=== PATIENT | female | born 1995 | race Caucasian/White ===

== ENCOUNTER 2017-01-11 16:55 | Emergency (ER) | payer BC ==
[2017-01-11 17:01] VITALS: RESP 16
[2017-01-11] MEDS ORDERED: NS 1,000 ML IV ONE (17:41)
[2017-01-11 18:05] LABS: % IMMATURE GRANULYOCYTES 0.2 % (0.0-1.1); ABSOLUTE IMMATURE GRANULOCYTES 0.01 10^3/uL (0.00-0.10); ADD DIFF? NO; ADD MORPH? NO; ADD SCAN? NO; ATYPICAL LYMPHOCYTE FLAG 0 (0-99); FRAGMENT RBC FLAG 0 (0-99); HEMATOCRIT 40.9 % (38.0-47.0); HEMOGLOBIN 13.8 g/dL (12.6-16.3); LEFT SHIFT FLG 0 (0-99); LIPEMIA HEMOLYSIS FLAG 80 (0-99); MEAN CELL HEMOGLOBIN 32.5 pg (27.9-34.1); MEAN CELL HEMOGLOBIN CONCENTR. 33.7 g/dL (32.4-36.7); MEAN CELL VOLUME 96.5 fL (81.5-99.8); PLATELET CLUMPS FLAG 0 (0-99); PLATELET COUNT 178 10^3/uL (150-400); RED BLOOD CELL COUNT 4.24 10^6/uL (4.18-5.33); RED CELL DISTRIBUTION WIDTH 13.4 % (11.5-15.2)
--- NOTE | 2017-01-11 19:41 | EDPHY ---
H & P Stated Complaint: Constipated;last BM 6 days ago;no vom "I couldn't find an enema at [facility]" Time Seen by Provider: 01/11/17 17:32 HPI/ROS: Chief complaint: Constipation History of present illness: This is a 21-year-old female who presents to the emergency department for evaluation of constipation. She reports the onset of symptoms approximately 6 days ago. Since then she has not had a significant bowel movement. She has started to develop some abdominal discomfort starting low in the abdomen and working its way up. She describes a fullness. Occasional nausea but no vomiting. No associated fevers. No urinary symptoms. Review of systems: A 10 point review of systems was obtained and other than described above was negative - Personal History LMP (Females 10-55): 1-7 Days Ago Current Tetanus Diphtheria and Acellular Pertussis (TDAP): Yes - Medical/Surgical History Hx Asthma: No Hx Chronic Respiratory Disease: No Hx Diabetes: No Hx Cardiac Disease: No Hx Renal Disease: No Hx Cirrhosis: No Hx Alcoholism: No Hx HIV/AIDS: No Hx Splenectomy or Spleen Trauma: No Other PMH: LEFT LEG COMPART SYND/SURG, ADHD, BIPOLAR - Social History Smoking Status: Current every day smoker - Physical Exam Exam: General Appearance: Alert, nontoxic. Eyes: Pupils equal and round no pallor or injection. ENT, Mouth: Mucous membranes moist. Respiratory: There are no retractions, lungs are clear to auscultation. Cardiovascular: Regular rate and rhythm. Gastrointestinal: Bowel sounds are normal. Abdomen is soft, nondistended and nontender. Neurological: Alert and oriented x4. Strength and sensation intact and symmetrical. Skin: Warm and dry, no rashes. Musculoskeletal: Neck is supple non tender. Extremities are symmetrical, full range of motion. Psychiatric: Patient is oriented X 3, there is no agitation. Constitutional: Initial Vital Signs Temperature (C) 37.1 C 01/11/17 16:56 Heart Rate 78 01/11/17 16:56 Respiratory Rate 16 01/11/17 16:56 Blood Pressure 122/75 H 01/11/17 16:56 O2 Sat (%) 96 01/11/17 16:56 O2 Delivery Mode Room Air Allergies/Adverse Reactions: No Known Allergies Allergy (Verified 01/11/17 16:56) Home Medications: Medication Instructions Recorded Adderall 10 MG (*) 01/22/16 Ambien 01/22/16 [place] 01/22/16 [place] Carbonate 01/22/16 Loestrin 24 Fe Tablet 01/22/16 VYVANSE 01/22/16 2 Anxiety Meds ?Names 01/11/17 Medical Decision Making - Diagnostics Imaging Results: Imaging Impressions Abdomen X-Ray 01/11/17 18:47 Impression: Moderate constipation. Imaging: I viewed and interpreted images myself ED Course/Re-evaluation: Patient is discussed with my secondary supervising physician Dr. Dion Mayes. Patient presents to the emergency department concerned she is constipated with abdominal fullness. On presentation she is nontoxic. Vital signs are stable. Serial abdominal exams are performed in the emergency room and remain benign. CBC unremarkable. There is mild elevation of LFTs although she states she has had this problem past and has follow-up with her doctor next week to recheck this and her other medication levels. Urinalysis does show some blood, she recently had a menstrual cycle. Abdominal x-ray does show some constipation. She is given magnesium citrate in the emergency room and has a bowel movement and states she is feeling better. She is comfortable being discharged home. Home care is discussed including the use of stool softeners. Return precautions are given. She is again asked to follow up with her primary care doctor for recheck of her problem this evening as well as other findings here in the emergency room. Patient voiced understanding and agreement with plan. Differential Diagnosis: Included but not limited to constipation, fecal impaction, bowel obstruction, colitis, diverticulitis, urinary tract disease - Data Points Laboratory Results: Laboratory Results 01/11/17 17:58 01/11/17 17:58 01/11/17 01/11/17 01/11/17 19:37 17:58 17:58 WBC RBC Hgb Hct MCV MCH MCHC RDW Plt Count MPV Neut % (Auto) Lymph % (Auto) [place] % (Auto) Eos % (Auto) Baso % (Auto) Nucleat RBC Rel Count Absolute Neuts (auto) Absolute Lymphs (auto) Absolute Monos (auto) Absolute Eos (auto) Absolute Basos (auto) Absolute Nucleated RBC Immature Gran % Immature Gran # Sodium 148 mEq/L H mEq/L (134-144) Potassium 3.9 mEq/L mEq/L (3.5-5.2) Chloride 110 mEq/L mEq/L (97-110) Carbon Dioxide 21 mEq/l L mEq/l (22-31) Anion Gap 17 mEq/L H mEq/L (8-16) BUN 10 mg/dL mg/dL (7-23) Creatinine 0.8 mg/dL mg/dL (0.6-1.0) Estimated GFR > 60 Glucose 89 mg/dL mg/dL (70-100) Calcium 9.2 mg/dL mg/dL (8.5-10.4) Total Bilirubin 0.3 mg/dL mg/dL (0.1-1.4) Conjugated Bilirubin 0.1 mg/dL mg/dL (0.0-0.5) Unconjugated Bilirubin 0.2 mg/dL mg/dL (0.0-1.1) AST 110 IU/L H IU/L (14-46) ALT 96 IU/L H IU/L (9-52) Alkaline Phosphatase 60 IU/L IU/L (38-126) Total Protein 8.4 g/dL H g/dL (6.3-8.2) Albumin 5.0 g/dL g/dL (3.5-5.0) Lipase 140 IU/L IU/L (23-300) Beta HCG, Qual NEGATIVE Urine Color YELLOW Urine Appearance CLEAR Urine pH 7.0 (5.0-7.5) Ur Specific [place] 1.010 (1.002-1.030) Urine Protein NEGATIVE (NEGATIVE) Urine Ketones NEGATIVE (NEGATIVE) Urine Blood 1+ H (NEGATIVE) Urine Nitrate NEGATIVE (NEGATIVE) Urine Bilirubin NEGATIVE (NEGATIVE) Urine Urobilinogen NEGATIVE EU EU (0.2-1.0) Ur Leukocyte Esterase NEGATIVE (NEGATIVE) Urine RBC 3-5 /hpf H /hpf (0-3) Urine WBC 1-3 /hpf /hpf (0-3) Ur Epithelial Cells TRACE /lpf /lpf (NONE-1+) Urine Glucose NEGATIVE (NEGATIVE) 01/11/17 17:58 WBC 4.99 10^3/uL 10^3/uL (3.80-9.50) RBC 4.24 10^6/uL 10^6/uL (4.18-5.33) Hgb 13.8 g/dL g/dL (12.6-16.3) Hct 40.9 % % (38.0-47.0) MCV 96.5 fL fL (81.5-99.8) MCH 32.5 pg pg (27.9-34.1) MCHC 33.7 g/dL g/dL (32.4-36.7) RDW 13.4 % % (11.5-15.2) Plt Count 178 10^3/uL 10^3/uL (150-400) MPV 9.0 fL fL (8.7-11.7) Neut % (Auto) 49.9 % % (39.3-74.2) Lymph % (Auto) 40.1 % % (15.0-45.0) [place] % (Auto) 7.0 % % (4.5-13.0) Eos % (Auto) 2.4 % % (0.6-7.6) Baso % (Auto) 0.4 % % (0.3-1.7) Nucleat RBC Rel Count 0.0 % % (0.0-0.2) Absolute Neuts (auto) 2.49 10^3/uL 10^3/uL (1.70-6.50) Absolute Lymphs (auto) 2.00 10^3/uL 10^3/uL (1.00-3.00) Absolute Monos (auto) 0.35 10^3/uL 10^3/uL (0.30-0.80) Absolute Eos (auto) 0.12 10^3/uL 10^3/uL (0.03-0.40) Absolute Basos (auto) 0.02 10^3/uL 10^3/uL (0.02-0.10) Absolute Nucleated RBC 0.00 10^3/uL 10^3/uL (0-0.01) Immature Gran % 0.2 % % (0.0-1.1) Immature Gran # 0.01 10^3/uL 10^3/uL (0.00-0.10) Sodium Potassium Chloride Carbon Dioxide Anion Gap BUN Creatinine Estimated GFR Glucose Calcium Total Bilirubin Conjugated Bilirubin Unconjugated Bilirubin AST ALT Alkaline Phosphatase Total Protein Albumin Lipase Beta HCG, Qual Urine Color Urine Appearance Urine pH Ur Specific [place] Urine Protein Urine Ketones Urine Blood Urine Nitrate Urine Bilirubin Urine Urobilinogen Ur Leukocyte Esterase Urine RBC Urine WBC Ur Epithelial Cells Urine Glucose Medications Given: Discontinued Medications Sodium Chloride (Ns) 1,000 mls @ 0 mls/hr IV EDNOW ONE; Wide Open PRN Reason: Protocol Stop: 01/11/17 17:42 Last Admin: 01/11/17 18:03 Dose: 1,000 mls Magnesium Citrate (Magnesium Citrate) 300 ml PO ONCE ONE Stop: 01/11/17 19:44 Last Admin: 01/11/17 19:50 Dose: 300 ml Departure - Departure Disposition: Home, Routine, Self-Care Clinical Impression: Constipation Qualifiers: Constipation type: unspecified constipation type Qualified Code(s): K59.00 - Constipation, unspecified Condition: Good Instructions: Constipation (ED) Additional Instructions: Follow-up with [facility] for continued evaluation and care Please have your liver function tests recheck does a were slightly elevated Have your urine recheck as there was blood noted in it Use an [id number] stool softener such as Colace If symptoms worsen or new symptoms develop return to the emergency room for recheck Referrals: [facility] [Other] - As per Instructions
[2017-01-11] MEDS ORDERED: MAGNESIUM CITRATE 300 ML BOTTLE PO ONE (19:43)
[2017-01-11 19:49] LABS: ANION GAP 17 mEq/L (8-16); CALCIUM 9.2 mg/dL (8.5-10.4); CARBON DIOXIDE 21 mEq/l (22-31); CHLORIDE 110 mEq/L (97-110); CREATININE 0.8 mg/dL (0.6-1.0); GLOMERULAR FILTRATION RATE > 60; GLUCOSE 89 mg/dL (70-100); POTASSIUM 3.9 mEq/L (3.5-5.2); SODIUM 148 mEq/L (134-144)
[2017-01-11 19:50] LABS: ALANINE AMINOTRANSFERASE 96 IU/L (9-52); ALKALINE PHOSPHATASE 60 IU/L (38-126); ASPARTATE AMINOTRANSFERASE 110 IU/L (14-46); BILIRUBIN,TOTAL 0.3 mg/dL (0.1-1.4); BILIRUBIN-CONJUGATED 0.1 mg/dL (0.0-0.5); BILIRUBIN-UNCONJUGATED 0.2 mg/dL (0.0-1.1); TOTAL PROTEIN 8.4 g/dL (6.3-8.2)
[2017-01-11 19:50] LABS: COLOR YELLOW; LEUKOCYTE ESTERASE,URINE NEGATIVE (NEGATIVE); NITRITE,URINE NEGATIVE (NEGATIVE)
[2017-01-11 20:55] VITALS: BP 126/77; PULSE 79; TEMP 98.2; O2SAT 97
== END 2017-01-11 20:54 | disposition home or self-care (01) ==
DX: K59.00 Constipation, unspecified (principal); E86.9 Volume depletion, unspecified; F17.200 Nicotine dependence, unspecified, uncomplicated

== ENCOUNTER 2017-07-01 15:13 | Emergency (ER) | payer BC ==
--- NOTE | 2017-07-01 15:33 | EDPHY ---
H & P Stated Complaint: PT HAS BEEN OFF BIPOLAR/ANXIETY MEDS X 2 MONTHS/HAVING HALLUCINATIONS/DENIE - Personal History LMP (Females 10-55): Now Current Tetanus/Diphtheria Vaccine: Yes - Medical/Surgical History Hx Asthma: No Hx Chronic Respiratory Disease: No Hx Diabetes: No Hx Cardiac Disease: No Hx Renal Disease: No Hx Cirrhosis: No Hx Alcoholism: No Hx HIV/AIDS: No Hx Splenectomy or Spleen Trauma: No Other PMH: LEFT LEG COMPART SYND/SURG, ADHD, BIPOLAR - Social History Smoking Status: Current every day smoker <Dion Mayes - Last Filed: 07/01/17 16:40> Source: Patient, Old records Exam Limitations: No limitations <Minerva Kuhn - Last Filed: 07/02/17 02:37> Time Seen by Provider: 07/01/17 15:32 Constitutional: Initial Vital Signs Temperature (C) 36.2 C 07/01/17 15:22 Heart Rate 81 07/01/17 15:22 Respiratory Rate 18 07/01/17 15:22 Blood Pressure 124/99 H 07/01/17 15:22 O2 Sat (%) 99 07/01/17 15:22 O2 Delivery Mode Room Air Allergies/Adverse Reactions: No Known Allergies Allergy (Verified 07/01/17 23:59) Home Medications: Medication Instructions Recorded Ambien 01/22/16 Loestrin 24 Fe Tablet 01/22/16 VYVANSE 01/22/16 Amphet Asp and D/Amphet [Adderall 10 mg PO DAILY #30 tab 07/01/17 10 MG (*)] Lisdexamfetamine Dimesylate 40 mg PO DAILY #30 capsule 07/01/17 [Vyvanse] [place] Carbonate ER [Eskalith Cr 450 mg PO HS #30 tab 07/01/17 450 mg (*)] [place] Carbonate ER [Lithobid 300 300 mg PO DAILY #30 tab 07/01/17 mg (*)] Norethindrone [Sharobel] 0.35 mg PO DAILY 28 Days #1 pkt 07/01/17 Propranolol HCl [Inderal 20mg (*)] 20 mg PO DAILY #30 tab 07/01/17 hydrOXYzine HCL [hydrOXYzine HCL 25 mg PO Q8 PRN #90 tab 07/01/17 (RX)] lamoTRIgine [LamICTAL XR] 300 mg PO DAILY #30 tab.er.24 07/01/17 ED Course/Re-evaluation: CHIEF COMPLAINT: "They were concerned that I went off my medications" HISTORY OF PRESENT ILLNESS: The patient is a 22 y/o female with a history of bipolar disorder I and anxiety arriving voluntarily and complaining of insomnia , paranoia, and domingo since losing access to her mediations 2 months ago. She is a [employer] student, but is taking the semester off and lost access to her on- campus psychiatrist who prescribed all of her medications due to insurance issues. She reports she has not been sleeping for several days and feels shaky and like her "skin is crawling." She took one dose of Ambien last night and this seemed to amplify her symptoms. She is here seeking help restarting access to her medications. She denies suicidal or homicidal ideation. No recent alcohol or illicit ingestions. No recent trauma or illness. REVIEW OF SYSTEMS: A 10 point review of systems was performed and is negative with the exception of the elements mentioned in the history of present illness. PHYSICAL EXAM: HR, BP, O2 Sat, RR. Temp noted General Appearance: Alert, well hydrated, appropriate, and non-toxic appearing. Head: Atraumatic without scalp tenderness or obvious injury Eyes: Pupils equal, round, reactive to light and accommodation, EOMI, no trauma , no injection. Nose: Atraumatic, no rhinorrhea, clear. Throat: Mucus membranes moist. Neck: Supple Respiratory: No retractions, no distress, no wheezes, and no accessory muscle use. Lungs are clear to auscultation bilaterally. Cardiovascular: Regular rate and rhythm, no murmurs, rubs, or gallops. Good capillary refill all extremities. Gastrointestinal: Abdomen is soft, nontender, non-distended, no masses, no rebound, no guarding, no peritoneal signs. Musculoskeletal: Normal active ROM of all extremities, atraumatic. Neurological: Alert, appropriate, and interactive. The patient has non-focal cranial nerves, motor, sensory, and cerebellar exam. Mildly tremulous. Skin: No rashes, good turgor, no nodules on palpation. Past medical history: Left leg compartment syndrome, bipolar disorder I, ADHD, anxiety, insomnia, prior mental health hold in [place]. Vyvanse 40mg QD Adderall 10mg PRN [place] ER 750mg QD Lamictal 300mg QD Propranolol 10mg or 25mg PRN Ambien 10mg QHS to PRN Sharobel 0.35mg needs refills Hydroxyzine maybe 25mg QD to PRN Albuterol inhaler PRN Past surgical history: Noncontributory Family history: Noncontributory Social history: [employer] student but taking this semester off. No recent illicit drugs. From [place]. DIFFERENTIAL DIAGNOSIS: The differential diagnosis for the patient's symptoms included but was not limited to unmedicated bipolar disorder, anxiety, insomnia , depression, situational depression, medication side effect, drugs, and alcohol abuse. MEDICAL DECISION MAKING: This is a pleasant 22 y/o female with a history of bipolar disorder I who lost access to her medications 2 months ago and has been experiencing progressively worsening insomnia, domingo, and paranoia since then. She arrives voluntarily for help restarting her medications. She is mildly tremulous and appears anxious, but otherwise has a normal exam. She does not meet criteria for an M1 hold. Plan to treat symptoms here with 1mg PO Ativan and 10mg PO Propranolol and arrange mental health follow up. Behavioral health has met with patient and is arranging out patient follow up for her. I've written a one-month supply of her needed prescriptions. She understands follow up instructions and return precautions and is comfortable with this plan. (Dion Mayes) - Data Points Medications Given: Discontinued Medications Lorazepam (Ativan) 1 mg PO EDNOW ONE Stop: 07/01/17 15:42 Last Admin: 07/01/17 15:43 Dose: 1 mg Propranolol HCl (Inderal) 10 mg PO EDNOW ONE Stop: 07/01/17 15:42 Last Admin: 07/01/17 15:43 Dose: 10 mg Departure <Dion Mayes - Last Filed: 07/01/17 16:40> <Minerva Kuhn - Last Filed: 07/02/17 02:37> - Departure Disposition: Home, Routine, Self-Care Clinical Impression: Bipolar I disorder Condition: Good Instructions: Bipolar Disorder (ED) Additional Instructions: 1. Take all medications as prescribed. 2. Follow up with psychiatrist this week. I recommend calling first thing tomorrow morning to schedule this appointment. 3. Return to the ED for any worsening of condition. Referrals: [facility] [Clinic] - As per Instructions Prescriptions: Amphet Asp and D/Amphet [Adderall 10 MG (*)] 10 mg PO DAILY #30 tab hydrOXYzine HCL [hydrOXYzine HCL (RX)] 25 mg PO Q8 PRN #90 tab PRN Reason: Anxiety lamoTRIgine [LamICTAL XR] 300 mg PO DAILY #30 tab.er.24 Lisdexamfetamine Dimesylate [Vyvanse] 40 mg PO DAILY #30 capsule [place] Carbonate ER [Eskalith Cr 450 mg (*)] 450 mg PO HS #30 tab [place] Carbonate ER [Lithobid 300 mg (*)] 300 mg PO DAILY #30 tab Norethindrone [Sharobel] 0.35 mg PO DAILY 28 Days #1 pkt Propranolol HCl [Inderal 20mg (*)] 20 mg PO DAILY #30 tab Report Scribed for: Dion Mayes Report Scribed by: Cindi Ardon Date of Report: 07/01/17 Time of Report: 15:34 <Dion Mayes - Last Filed: 07/01/17 16:40>
[2017-07-01] MEDS ORDERED: PROPRANOLOL HCL 10 MG TAB PO ONE (15:41)
[2017-07-01] MEDS ORDERED: LORazepam 1 MG TAB PO ONE (15:41)
[2017-07-01] MEDS ORDERED: LORazepam 1 MG TAB ONE (15:42)
[2017-07-01] MEDS ORDERED: PROPRANOLOL HCL 20 MG TAB ONE (15:42)
[2017-07-01 16:55] VITALS: BP 133/100
--- NOTE | 2017-07-02 11:03 | ASDISCHSUM ---
Discharge Information Plan Status:Home with No Needs Medically Cleared to Leave: Discharge Date:07/01/2017 04:55 PM CM D/C Disposition:Home, Routine, Self-Care ADT D/C Disposition:Home, Routine, Self-Care Projected Discharge Date:07/01/2017 04:55 PM Transportation at D/C:None or Unknown Discharge Delay Reason: Follow-Up Date:07/01/2017 04:55 PM Discharge Slot: Final Diagnosis: Placement Information Patient Contact Information Contact Name:TATIANA Relationship:Father Address:[address] [place] [address] City:[facility] Phone: [facility]/Zip Code:[place] [address] Email: Financial Information Financial Class:HMO and PPO Plans Primary Plan Desc: OUT OF STATE PPO Primary Plan Number:[id number] Secondary Plan Desc: Secondary Plan Number: Assessment Information [facility] CM Progress Note CM Note CM Note Notes: LATE ENTRY: This CM briefly visited with patient in the ED on 07/01/17; discussed establishing primary care. Pt provided information on [facility] and [facility]. This CM asked to follow up with pt on 07/02/17 to see how she is doing and if she needs any assistance with appts,etc. Pt said yes that'd be fine. CM to follow up w/ pt on 07/02/17. Date Signed: 07/02/2017 11:02 AM Electronically Signed By:Ene Mitchell RN Intervention Information Intervention Type:Health Clinic Date of Service:07/02/2017 11:02 AM Patient Type:Emergency Room Staff Member:JAYE Mitchell [place] Hours:0.25 Discipline:Matcher Severity: Comment:PCP information
== END 2017-07-01 16:55 | disposition home or self-care (01) ==
DX: F31.9 Bipolar disorder, unspecified (principal); F17.200 Nicotine dependence, unspecified, uncomplicated

== ENCOUNTER 2017-07-01 23:58 | Emergency (ER) | payer BC ==
[2017-07-02] MEDS ORDERED: LORazepam 1 MG TAB ONE (01:11)
[2017-07-02] MEDS ORDERED: LORazepam 1 MG TAB PO ONE (01:12)
[2017-07-02] MEDS ORDERED: OLANZapine DISINTEGR 10 MG TAB PO ONE (02:03)
--- NOTE | 2017-07-02 02:40 | EDPHY ---
H & P Stated Complaint: anxiety-here earlier Time Seen by Provider: 07/02/17 01:51 HPI/ROS: HPI The patient presents with anxiety, restlessness, chest pains, headache, sensation that bugs are crawling on her. The patient has a history of bipolar disorder and anxiety. She was seen less than 24 hr ago in the emergency department for similar symptoms. She has been off of her psychiatric medications for 2 months due to insurance issues. She received Ativan and propanolol in the emergency department. She felt better and was discharged. Since she has been home she was able to fill all of her prescriptions which were refilled by Dr. Mayes. She took hydroxyzine twice, propanolol, lithium and Lamictal. She was not able to sleep and she found herself thrashing and screaming. She called for a friend who brought her into the emergency department. The patient says that she has not been sleeping well at all and for the last 4-5 days cannot recall much sleep. She has been given resources from the mental health team here and has plans to call a psychiatrist in the morning to arrange for further care. She is not feeling suicidal or homicidal. She has been in an inpatient psychiatric facility, though feels that she did not benefit from this. REVIEW OF SYSTEMS Constitutional: No fever, no chills. Eyes: No discharge. ENT: No sore throat. Cardiovascular: Positive for chest pain, no palpitations. Respiratory: No cough, no shortness of breath. Gastrointestinal: No abdominal pain, no vomiting. Genitourinary: No hematuria. Musculoskeletal: No back pain. Skin: No rashes. Neurological: No headache. 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 PHYSICAL General Appearance: Alert, anxious Eyes: Pupils equal and round no pallor or injection ENT, Mouth: Mucous membranes moist Respiratory: There are no retractions, lungs are clear to auscultation Cardiovascular: Regular rate and rhythm Gastrointestinal: Abdomen is soft and non-tender, no masses, bowel sounds normal Neurological: A&O, moves all extremities Skin: Warm and dry, no rashes Musculoskeletal: Neck is supple non tender Extremities: symmetrical, full range of motion Psychiatric: Patient is oriented X 3, she is slightly agitated, picking at her clothes frequently Source: Patient, Old records Exam Limitations: No limitations - Personal History LMP (Females 10-55): 1-7 Days Ago Current Tetanus Diphtheria and Acellular Pertussis (TDAP): Yes - Medical/Surgical History Hx Asthma: No Hx Chronic Respiratory Disease: No Hx Diabetes: No Hx Cardiac Disease: No Hx Renal Disease: No Hx Cirrhosis: No Hx Alcoholism: No Hx HIV/AIDS: No Hx Splenectomy or Spleen Trauma: No Other PMH: LEFT LEG COMPART SYND/SURG, ADHD, BIPOLAR - Social History Smoking Status: Current every day smoker Constitutional: Initial Vital Signs Heart Rate 72 07/02/17 00:00 Respiratory Rate 16 07/02/17 00:00 Blood Pressure 128/98 H 07/02/17 00:00 O2 Sat (%) 97 07/02/17 00:00 O2 Delivery Mode Room Air Allergies/Adverse Reactions: No Known Allergies Allergy (Verified 07/01/17 23:59) Home Medications: Medication Instructions Recorded Ambien 01/22/16 Loestrin 24 Fe Tablet 01/22/16 VYVANSE 01/22/16 Amphet Asp and D/Amphet [Adderall 10 mg PO DAILY #30 tab 07/01/17 10 MG (*)] Lisdexamfetamine Dimesylate 40 mg PO DAILY #30 capsule 07/01/17 [Vyvanse] [place] Carbonate ER [Eskalith Cr 450 mg PO HS #30 tab 07/01/17 450 mg (*)] [place] Carbonate ER [Lithobid 300 300 mg PO DAILY #30 tab 07/01/17 mg (*)] Norethindrone [Sharobel] 0.35 mg PO DAILY 28 Days #1 pkt 07/01/17 Propranolol HCl [Inderal 20mg (*)] 20 mg PO DAILY #30 tab 07/01/17 hydrOXYzine HCL [hydrOXYzine HCL 25 mg PO Q8 PRN #90 tab 07/01/17 (RX)] lamoTRIgine [LamICTAL XR] 300 mg PO DAILY #30 tab.er.24 07/01/17 Medical Decision Making Differential Diagnosis: This is a 22-year-old female with history of anxiety and bipolar disorder, currently off of her medications for the last 2 months. She presented to the emergency department earlier today for symptoms of anxiety and hallucinations. She was medicated with propanolol and Ativan and felt better. She was discharged home and was thankfully able to refill all of her prescriptions. She began taking them tonight, however her symptoms worsened and she comes back to the emergency department as instructed. She currently is feeling anxious, is experiencing some visual hallucinations of bugs crawling on her, has tightness in her chest as well as her usual migraine headache. She has been experiencing insomnia for the last several nights. She is not suicidal or homicidal and does not appear gravely disabled. Differential diagnosis includes bipolar disorder with anxiety, insomnia causing hallucinations, polysubstance abuse, medication side effect. We discussed mental health evaluation. She agrees that she does not want to be in inpatient as she has not benefit from this in the past. We have decided to try a dose of Zyprexa to see if this helps her to rest. If it does, she can be discharged home with continued re-initiation of her medication. The patient felt much better after receiving Zyprexa and would like to go home and get rest. She has good outpatient plan in place already and is not at risk. She will be discharged home. - Data Points Medications Given: Discontinued Medications Lorazepam (Ativan) 1 mg PO EDNOW ONE Stop: 07/02/17 01:13 Last Admin: 07/02/17 01:13 Dose: 1 mg Olanzapine (Zyprexa Zydis) 10 mg PO EDNOW ONE Stop: 07/02/17 02:04 Last Admin: 07/02/17 02:09 Dose: 10 mg Departure - Departure Disposition: Home, Routine, Self-Care Clinical Impression: Anxiety Condition: Good Instructions: Anxiety (ED) Additional Instructions: Please return to the emergency department if your worse in any way. Otherwise follow up with the psychiatrist as planned. Referrals: NONE *PRIMARY CARE P,. [Primary Care Provider] - As per Instructions
[2017-07-02 03:10] VITALS: BP 118/79
--- NOTE | 2017-07-02 11:00 | ASMTCMCOM ---
CM Note CM Note Notes: Followed up with pt ([phone]) this morning. Pt had to return to the ED last night due to increased anxiety and restlessness. When asked how she is doing this morning, pt stated "Not so well. I have a court date coming up and then I'll be in [facility] for 1 1/2 months before going to [facility]. So that'll be in the news and I rather not talk about it." Pt then said she needed to get off the phone and call her parents. CM available for further assistance if needed. Date Signed: 07/02/2017 10:59 AM Electronically Signed By:Ene Mitchell RN
--- NOTE | 2017-07-02 11:04 | ASDISCHSUM ---
Discharge Information Plan Status:Home with No Needs Medically Cleared to Leave: Discharge Date:07/02/2017 03:09 AM CM D/C Disposition:Home, Routine, Self-Care ADT D/C Disposition:Home, Routine, Self-Care Projected Discharge Date:07/02/2017 03:09 AM Transportation at D/C:Friend Discharge Delay Reason: Follow-Up Date:07/02/2017 03:09 AM Discharge Slot: Final Diagnosis: Placement Information Patient Contact Information Contact Name:TATIANA Relationship:Father Address:[address] [place] [address] City:[facility] Phone: [facility] Code:[place] [address] Email: Financial Information Financial Class:HMO and PPO Plans Primary Plan Desc: OUT OF STATE PPO Primary Plan Number:[id number] Secondary Plan Desc: Secondary Plan Number: Assessment Information [facility] CM Progress Note CM Note CM Note Notes: Followed up with pt ([phone]) this morning. Pt had to return to the ED last night due to increased anxiety and restlessness. When asked how she is doing this morning, pt stated "Not so well. I have a court date coming up and then I'll be in half-way for 1 1/2 months before going to retirement. So that'll be in the news and I rather not talk about it." Pt then said she needed to get off the phone and call her parents. CM available for further assistance if needed. Date Signed: 07/02/2017 10:59 AM Electronically Signed By:Ene Mitchell RN Intervention Information Intervention Type:Post Acute Communication Date of Service:07/02/2017 11:03 AM Patient Type:Emergency Room Staff Member:JAYE Mitchell Sharon Hours:0.25 Discipline:Maintenance Welder Severity: Comment:Called pt to follow-up
== END 2017-07-02 03:09 | disposition home or self-care (01) ==
DX: F41.9 Anxiety disorder, unspecified (principal); F17.200 Nicotine dependence, unspecified, uncomplicated

== ENCOUNTER 2017-07-02 14:03 | Inpatient (IN) | payer BC ==
[2017-07-02 14:32] LABS: PLATELET COUNT 243 10^3/uL (150-400)
--- NOTE | 2017-07-02 14:57 | EDPHY ---
H & P Stated Complaint: hallucinations Source: Patient Exam Limitations: No limitations - Personal History LMP (Females 10-55): 1-7 Days Ago Current Tetanus Diphtheria and Acellular Pertussis (TDAP): Yes - Medical/Surgical History Hx Asthma: No Hx Chronic Respiratory Disease: No Hx Diabetes: No Hx Cardiac Disease: No Hx Renal Disease: No Hx Cirrhosis: No Hx Alcoholism: No Hx HIV/AIDS: No Hx Splenectomy or Spleen Trauma: No Other PMH: LEFT LEG COMPART SYND/SURG, ADHD, BIPOLAR - Social History Smoking Status: Current every day smoker Time Seen by Provider: 07/02/17 14:56 HPI/ROS: CHIEF COMPLAINT: Hallucinating HISTORY OF PRESENT ILLNESS: The patient presents to the ED on M1 psychiatric hold with hallucinations. The patient has a history of bipolar mood disorder. She has been seen in the emergency department twice in the past 12 hr. She refilled chronic medications for bipolar mood disorder yesterday. She had taken some of those with an continued to be manic which resulted in her coming back to the emergency department last night. She received Zyprexa and ultimately was discharged home. She presents to the the ED today with florid psychosis with associated hallucinations. REVIEW OF SYSTEMS: A comprehensive 10 point review of systems is otherwise negative aside from elements mentioned in the history of present illness. (Russ Malcolm) - Physical Exam Exam: General Appearance: Alert, no distress Eyes: Pupils equal and round no pallor or injection ENT, Mouth: Mucous membranes moist Respiratory: There are no retractions, lungs are clear to auscultation Cardiovascular: Regular rate and rhythm Gastrointestinal: Abdomen is soft and nontender, no masses, bowel sounds normal Neurological: 5/5 strength all 4 extremities Skin: Warm and dry, no rashes Musculoskeletal: Neck is supple nontender Extremities: symmetrical, full range of motion Psychiatric: Alert and oriented x3, agitated, hallucinating, tangential thoughts, denies suicidal thoughts (Russ Malcolm) Constitutional: Initial Vital Signs Temperature (C) 36.8 C 07/02/17 14:11 Heart Rate 65 07/02/17 14:11 Respiratory Rate 18 07/02/17 14:11 Blood Pressure 140/101 H 07/02/17 14:11 O2 Sat (%) 97 07/02/17 14:11 O2 Delivery Mode Room Air Allergies/Adverse Reactions: No Known Allergies Allergy (Verified 07/01/17 23:59) Home Medications: Medication Instructions Recorded Ambien 01/22/16 Loestrin 24 Fe Tablet 01/22/16 VYVANSE 01/22/16 Amphet Asp and D/Amphet [Adderall 10 mg PO DAILY #30 tab 07/01/17 10 MG (*)] Lisdexamfetamine Dimesylate 40 mg PO DAILY #30 capsule 07/01/17 [Vyvanse] [place] Carbonate ER [Eskalith Cr 450 mg PO HS #30 tab 07/01/17 450 mg (*)] [place] Carbonate ER [Lithobid 300 300 mg PO DAILY #30 tab 07/01/17 mg (*)] Norethindrone [Sharobel] 0.35 mg PO DAILY 28 Days #1 pkt 07/01/17 Propranolol HCl [Inderal 20mg (*)] 20 mg PO DAILY #30 tab 07/01/17 hydrOXYzine HCL [hydrOXYzine HCL 25 mg PO Q8 PRN #90 tab 07/01/17 (RX)] lamoTRIgine [LamICTAL XR] 300 mg PO DAILY #30 tab.er.24 07/01/17 Medical Decision Making ED Course/Re-evaluation: The patient is on M1 psychiatric hold. The patient received 10 mg of oral Zyprexa. She has been medically cleared for psychiatric evaluation at 3:45 p.m.. The patient received 1 mg of oral Ativan for ongoing anxiety and agitation. 7:00 p.m.: The patient received a dose of IM Geodon for agitation. 9:00 p.m.. The patient continues to be agitated. She is given additional 1 mg of oral Ativan and 10 mg of IM Zyprexa. Patient re-evaluated at 10:45 p.m.. She is now sleepy and sedated. Psychiatric evaluation in process. Likely in-patient hospitalization with disposition pending. The patient will be turned over to Dr. Crane at shift change. (Russ Malcolm) 0700AM: Patient signed over to Dr. Griffith at 7am. No acute events overnight. Pending Placement. (Oliverio Crane) 700: The patient is signed out to me at change of shift by Dr. Crane. The patient is stable. 730: The place [facility] is accepted to [address] [place] [address]. I discussed this with Psychiatric Services.EMTALA completed. (Lorena Reyes) Differential Diagnosis: Differential diagnosis considered includes psychosis, metabolic abnormality, dehydration (Russ Malcolm) - Data Points Laboratory Results: Laboratory Results 07/02/17 14:25 07/02/17 14:25 Medications Given: Discontinued Medications Diphenhydramine HCl (Benadryl Injection) 50 mg IVP EDNOW ONE Stop: 07/02/17 21:15 Last Admin: 07/02/17 21:25 Dose: 50 mg Lorazepam (Ativan) 1 mg PO EDNOW ONE Stop: 07/02/17 16:37 Last Admin: 07/02/17 16:39 Dose: 1 mg Lorazepam (Ativan) 1 mg PO EDNOW ONE Stop: 07/02/17 20:16 Last Admin: 07/02/17 20:18 Dose: 1 mg Olanzapine (Zyprexa Zydis) 10 mg PO EDNOW ONE Stop: 07/02/17 15:35 Last Admin: 07/02/17 15:41 Dose: 10 mg Olanzapine (Zyprexa Im Injection) 10 mg IM EDNOW ONE Stop: 07/02/17 19:16 Last Admin: 07/02/17 20:15 Dose: Not Given Olanzapine (Zyprexa Im Injection) 10 mg IM EDNOW ONE Stop: 07/02/17 20:55 Last Admin: 07/02/17 21:16 Dose: 10 mg Ziprasidone (Geodon) 10 mg IM EDNOW ONE Stop: 07/02/17 19:19 Last Admin: 07/02/17 19:26 Dose: 10 mg Departure - Departure Disposition: [facility] IP Clinical Impression: Acute psychosis Condition: Fair Referrals: NONE *PRIMARY CARE P,. [Primary Care Provider] - As per Instructions
[2017-07-02] MEDS ORDERED: OLANZapine DISINTEGR 10 MG TAB PO ONE (15:34)
[2017-07-02] MEDS ORDERED: LORazepam 1 MG TAB ONE ×2 (16:36→20:14)
[2017-07-02] MEDS ORDERED: LORazepam 1 MG TAB PO ONE ×2 (16:36→20:15)
[2017-07-02] MEDS ORDERED: OLANZapine 10 MG/2 ML VIAL ONE (19:14)
[2017-07-02] MEDS ORDERED: OLANZapine 10 MG/2 ML VIAL IM ONE ×2 (19:15→20:54)
[2017-07-02] MEDS ORDERED: ZIPRASIDONE MESYLATE 20 MG VIAL IM ONE ×2 (19:16→19:18)
[2017-07-03] MEDS ORDERED: OLANZapine DISINTEGR 10 MG TAB PO PRN ×2 (09:28→11:16)
[2017-07-03] MEDS ORDERED: MAG HYDROX/AL HYDROX/SIMETH 30 ML UDCUP PO PRN ×2 (09:28→14:42)
[2017-07-03] MEDS ORDERED: MAGNESIUM HYDROXIDE 30 ML UDCUP PO PRN ×2 (09:28→14:42)
[2017-07-03] MEDS ORDERED: LORazepam 0.5 MG TAB PO PRN (09:28)
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
[2017-07-03] MEDS ORDERED: OLANZapine 10 MG/2 ML VIAL IM PRN (14:40)
[2017-07-03] MEDS ORDERED: PROMETHAZINE HCL 25 MG SUPPR PR PRN (14:42)
[2017-07-03] MEDS ORDERED: THIAMINE HCL 100 MG TAB PO ONE (14:42)
[2017-07-03] MEDS ORDERED: PROMETHAZINE HCL 25 MG TAB PO PRN (14:42)
[2017-07-03] MEDS ORDERED: chlordiazePOXIDE 25 MG CAP PO PRN (14:42)
[2017-07-03] MEDS ORDERED: chlordiazePOXIDE 25 MG CAP PO ONE (15:07)
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
[2017-07-03] MEDS: LITHIUM CARBONATE ER 450 MG TAB PO SCH (20:52)
[2017-07-03] MEDS: QUEtiapine FUMARATE 100 MG TAB PO SCH ×2 (20:52→22:17)
[2017-07-03] MEDS: ACETAMINOPHEN 325 MG TAB PO PRN (22:31)
[2017-07-04] MEDS ORDERED: QUEtiapine FUMARATE 100 MG TAB PO PRN (08:56)
[2017-07-04] MEDS ORDERED: FAMOTIDINE 20 MG TAB PO PRN (08:58)
--- NOTE | 2017-07-04 09:06 | SOAPPROG ---
SOAP Progress Note Assessment/Plan: Assessment: Bipolar Disorder, I, manic severe with psychotic features Alcohol Use Disorder severe Alcohol Withdrawal - resolved History of migraine headaches, LLE compartment syndrome, and possible thyroid disease Elevated liver function tests on 07/02/17 Anion gap on 07/02/17 Nicotine use disorder - on nicotine patch Takes OCP daily Patient on M-1 hold for mixed manic and psychotic symptoms, was combative and in restraints in ER. Patient received multiple doses of Ativan and antipsychotics in ER 07/02/17. Patient required two dose of Librium 25mg yesterday. Scored zero on CIWA this AM and does not currently appear to be in withdrawal. Patient was anxious with paranoia and anxiety and VH last night. Patient has been calm on unit this AM, denies hallucinations or violent thoughts , has been eating and drinking. Patient has limited insight and no current outpatient MH treatment team. Patient has odd affect and illogical when discussing discharge planning, tangential and loud and briefly irritable at times. Plan: M-1 Hold expires 07/05/17 @ 13:23 Discontinue EMEDS [place] 450mg BID. Discussed risk of hypothyroidism, renal disease, drug interactions, signs/symptoms of toxicity, and defects. Seroquel 100mg QHS. Discussed risk of tardive dyskinesia, metabolic syndrome, unclear safety in . Ativan 1mg Q4 PRN anxiety/insomnia Seroquel 100mg Q4 PRN agitation/psychosis Check AM CMP, [place] level, free T4 Monitor behavior, impulse control, thought organization, judgment on unit Discussed [facility] treatment options. Patient not motivated for residential treatment but interested in IOP Reviewed handout on Naltrexone for alcohol use disorder, discussed risk of nausea, hepatitis, and blockade of opioid pain medications. If LFTs stable will discuss starting Naltrexone tomorrow Patient will work with care professional to locate dog and arrange for outpatient MH/[facility] treatment follow up 07/04/17 09:14 Subjective: CC: "A lot better today." Patient reports sleeping well and feels that she is tolerating [place] and Seroquel. Reports reduction in racing thoughts and feels her mood is more stable. Denies violent thoughts or feeling agitated or paranoid. Denies AH or VH. Denies feeling hopeless or suicidal. Reports prior to admit having racing thoughts, going multiple days without sleep, and binge drinking alcohol. Denies nausea, sweating, tremors or severe anxiety but has a mild headache. Reports not having a current outpatient MH treatment team but wanting discharge today. Reports in the past being diagnosed with thyroid dysfunction while taking [place] but never took thyroid medication. Reports wanting to quit alcohol in order to return to school and have better relationships with family and friends but is not willing to go into residential [facility] treatment, is interested in IOP. Unable to explain her combative behavior in the ER prior to admission or inability to engage in outpatient treatment. Objective: Vital Signs Temp Pulse Resp BP Pulse Ox 36.6 C 95 16 103/68 96 07/04/17 06:00 07/04/17 06:00 07/04/17 06:00 07/03/17 22:23 07/04/17 06:00 Alert WF, ambulatory without tremors or weakness. Speech RRR, loud at times. Mood 'a lot better' Affect odd, briefly irritable. Thoughts organized but tangential at times, illogical when discussing discharge planning. Denies SI or HI or AH or VH or paranoia. No evident delusions. Memory intact to month, year, president, location. Insight limited. Patient received 2 doses of PRN Librium 25mg yesterday for alcohol withdrawal; staff report patient slept 6.5 hours. Was anxious and reported paranoia and VH last night but not this AM. 07/02/17: CBC WNL. BMP WNL except glucose 126. HgbA1c 5.3, AST 274, ALT 210, Lipids WNL. TSH 2.0. BHCG negative. - Time Spent With Patient Time Spent With Patient: 20 minutes - Pending Discharge Pending Discharge Within 24 Hours: No Pending Discharge Within 48 Hours: No ICD10 Worksheet Patient Problems: Problems Problem Status Onset Acute psychosis Acute
[2017-07-04] MEDS: NICOTINE 14 MG/24 HR PATCH TD SCH (09:40)
[2017-07-04] MEDS: THIAMINE HCL 100 MG TAB PO SCH (09:41)
[2017-07-04] MEDS: ACETAMINOPHEN 325 MG TAB PO PRN (09:41)
[2017-07-04] MEDS: MULTIVITAMINS 1 EACH TAB PO SCH (09:41)
[2017-07-04] MEDS: FOLIC ACID 1 MG TAB PO SCH (09:41)
[2017-07-04] MEDS: NORETHINDRONE E ESTRADIOL IRON PO SCH (09:47)
[2017-07-04] MEDS: LITHIUM CARBONATE ER 450 MG TAB PO SCH ×3 (11:05→20:29)
[2017-07-04] MEDS: LORazepam 1 MG TAB PO PRN (11:11)
[2017-07-04] MEDS: NICOTINE POLACRILEX 2 MG GUM B PRN (20:29)
[2017-07-04] MEDS: QUEtiapine FUMARATE 100 MG TAB PO SCH (21:39)
[2017-07-05] MEDS: THIAMINE HCL 100 MG TAB PO SCH (08:27)
[2017-07-05] MEDS: MULTIVITAMINS 1 EACH TAB PO SCH (08:27)
[2017-07-05] MEDS: FOLIC ACID 1 MG TAB PO SCH (08:27)
[2017-07-05] MEDS: LITHIUM CARBONATE ER 450 MG TAB PO SCH ×2 (08:27→21:16)
[2017-07-05] MEDS: NICOTINE 14 MG/24 HR PATCH TD SCH (08:27)
[2017-07-05] MEDS: NORETHINDRONE E ESTRADIOL IRON PO SCH (08:31)
[2017-07-05] MEDS: NICOTINE POLACRILEX 2 MG GUM B PRN ×4 (09:16→21:17)
[2017-07-05] MEDS ORDERED: NALTREXONE HCL 50 MG TAB PO ONE (10:45)
--- NOTE | 2017-07-05 10:49 | SOAPPROG ---
SOAP Progress Note Assessment/Plan: Assessment: Bipolar Disorder, I, manic severe with psychotic features - improving Alcohol Use Disorder severe Alcohol Withdrawal - resolved History of migraine headaches, LLE compartment syndrome Elevated liver function tests, probably from alcohol Nicotine use disorder - on nicotine patch Takes OCP daily Patient on M-1 hold for mixed manic and psychotic symptoms, was combative and in restraints in ER and received multiple doses of IM lorazepam and IM antipsychotics. Patient has mild alcohol withdrawal on unit after admit that resolved after 2 doses of Librium. Patient slept well but has some residual symptoms (briefly irritable and tearful , loud and tangential at times) but appears much improved. Plan: M-1 Hold expires 07/05/17 @ 13:23. Patient declines voluntary treatment. Will file short term certification in order to monitor patients mood stability and symptoms over weekend and recheck lithium level 07/08/17. Plan discharge 07/08/17 if having continued improvement. Continue [place] 450mg BID, not at steady state Continue Seroquel 100mg QHS Continue Ativan 1mg Q4 PRN anxiety/insomnia; Seroquel 100mg Q4 PRN agitation/ psychosis Reviewed lab results with patient. Discussed having PCP recheck after discharge. Monitor behavior, impulse control, thought organization, judgment on unit Start Naltrexone 25mg today, 50mg QAM starting tomorrow, for alcohol use disorder Patient agreeable to referral to a PCP and psychiatrist Patient unsure if she willing to attend outpatient [facility] IOP or MH IOP after discharge 07/05/17 10:51 Subjective: CC: "I'm fine" Patient reports sleeping well. Reports feeling that her mood is stable but is irritable and briefly tearful during interview. Denies agitation or racing thoughts or dangerous thoughts. Reports she only wants MH IOP/outpatient and doesn't want a substance abuse counselor, is not interested in residential rehab. Reports reading Naltrexone handout and agreeable to start. Reports prior to ER visits going 5-6 days without sleep with racing thoughts. Hadn't been seeing an outpatient MH provider prior to admission. Agreeable to see a PCP and psychiatrist after discharge but unsure about substance abuse treatment. Denies side effects from lithium and seroquel. Objective: Vital Signs Temp Pulse Resp BP Pulse Ox 36.6 C 82 16 103/71 97 07/05/17 06:36 07/05/17 06:36 07/05/17 06:36 07/05/17 06:36 07/05/17 06:36 Laboratory Results 07/05/17 06:00 Alert WF. Mildly restless. Speech RRR, briefly loud. Mood 'I'm fine.' Affect : briefly irritable and agitation, briefly tearful. Thoughts organized, tangential at times. Denies SI or HI or AH or VH or paranoia. Insight limited. Staff report patient slept 8.5 hours. Attending some groups and eating/ drinking. Isolative, appearing anxious at times. BMP WNL. Anion gap 10 - improved AST 120, ALT 175 - elevated but improved from ER visit Free T4 0.98 WNL Li 0.7 (on lithium 48 hours, not steady state). - Time Spent With Patient Time Spent With Patient: 30 minutes - Pending Discharge Pending Discharge Within 24 Hours: No Pending Discharge Within 48 Hours: No ICD10 Worksheet Patient Problems: Problems Problem Status Onset Acute psychosis Acute
[2017-07-05] MEDS: SUMAtriptan 25 MG TAB PO PRN ×2 (13:47→21:16)
[2017-07-05] MEDS: ACETAMINOPHEN 325 MG TAB PO PRN ×2 (14:59→22:24)
[2017-07-05] MEDS: QUEtiapine FUMARATE 100 MG TAB PO SCH (22:23)
[2017-07-05] MEDS: LORazepam 1 MG TAB PO PRN (22:24)
[2017-07-06] MEDS: LITHIUM CARBONATE ER 450 MG TAB PO SCH ×3 (08:44→20:44)
[2017-07-06] MEDS: THIAMINE HCL 100 MG TAB PO SCH (08:47)
[2017-07-06] MEDS: MULTIVITAMINS 1 EACH TAB PO SCH (08:47)
[2017-07-06] MEDS: NALTREXONE HCL 50 MG TAB PO SCH (08:48)
[2017-07-06] MEDS: FOLIC ACID 1 MG TAB PO SCH (08:49)
[2017-07-06] MEDS: NICOTINE 14 MG/24 HR PATCH TD SCH (08:49)
[2017-07-06] MEDS: SUMAtriptan 25 MG TAB PO PRN ×2 (09:01→17:41)
[2017-07-06] MEDS: NICOTINE POLACRILEX 2 MG GUM B PRN ×6 (09:02→20:11)
[2017-07-06] MEDS: NORETHINDRONE E ESTRADIOL IRON PO SCH (09:19)
[2017-07-06] MEDS: ACETAMINOPHEN 325 MG TAB PO PRN ×3 (12:27→21:56)
[2017-07-06] MEDS: LORazepam 1 MG TAB PO PRN ×3 (14:04→22:36)
--- NOTE | 2017-07-06 14:40 | SOAPPROG ---
SOAP Progress Note Assessment/Plan: Assessment: Per Dr. Torres's notes: Assessment/Plan: Assessment: Bipolar Disorder, I, manic severe with psychotic features - improving Alcohol Use Disorder severe Alcohol Withdrawal - resolved History of migraine headaches, LLE compartment syndrome Elevated liver function tests, probably from alcohol Nicotine use disorder - on nicotine patch Takes OCP daily Patient on M-1 hold for mixed manic and psychotic symptoms, was combative and in restraints in ER and received multiple doses of IM lorazepam and IM antipsychotics. Patient has mild alcohol withdrawal on unit after admit that resolved after 2 doses of Librium. Patient slept well but has some residual symptoms (briefly irritable and tearful , loud and tangential at times) but appears much improved. Plan: M-1 Hold expires 07/05/17 @ 13:23. Patient declines voluntary treatment. Will file short term certification in order to monitor patients mood stability and symptoms over weekend and recheck lithium level 07/08/17. Plan discharge 07/08/17 if having continued improvement. Continue [place] 450mg BID, not at steady state Continue Seroquel 100mg QHS Continue Ativan 1mg Q4 PRN anxiety/insomnia; Seroquel 100mg Q4 PRN agitation/ psychosis Reviewed lab results with patient. Discussed having PCP recheck after discharge. Monitor behavior, impulse control, thought organization, judgment on unit Start Naltrexone 25mg today, 50mg QAM starting tomorrow, for alcohol use disorder Patient agreeable to referral to a PCP and psychiatrist Patient unsure if she willing to attend outpatient [facility] IOP or MH IOP after discharge Plan: 07/06/17 14:36 1. Patient reports FLORES today, but denies that it's a migraine. "It's not that bad ," she says. But she took Imitrex this AM and Tylenol in PM. 2. Patient denies any SE's from Naltrexone. 3. [place] level on 07/05 was 0.7. 4. Patient will need referral to psych MD and therapist prior to d/c. 5. MD told patient he agreed with Dr. Torres's recommendation for substance disorder treatment after d/c, either residential, IOP or CAC therapy. Subjective: Met with patient, reviewed chart and d/w staff. Patient says she is doing "well " and has no problems to complaints today. She denies any SE's from naltrexone or lithium. She had FLORES this AM, but claims it "wasn't a migraine." She denies any SI/HI, no AH/VH. Objective: Vital Signs Temp Pulse Resp BP Pulse Ox 36.4 C 70 16 96/57 L 98 07/06/17 06:32 07/06/17 06:32 07/06/17 06:32 07/06/17 06:32 07/06/17 06:32 Laboratory Results 07/05/17 06:00 MSE: Affect: Euthymic Mood: "OK" TP: Linear TC: Denies any SI/HI, no evidence of psychosis Insight/Judgment: Poor - Time Spent With Patient Time Spent With Patient: 15" - Pending Discharge Pending Discharge Within 24 Hours: Yes Pending Discharge Date: 07/07/17 (Possible d/c on Saturday after f/u appts finalized) Pending Discharge Time: 11:00 ICD10 Worksheet Patient Problems: Problems Problem Status Onset Acute psychosis Acute
[2017-07-06] MEDS: QUEtiapine FUMARATE 100 MG TAB PO SCH (22:36)
[2017-07-07] MEDS: LITHIUM CARBONATE ER 450 MG TAB PO SCH ×2 (08:43→20:54)
[2017-07-07] MEDS: FOLIC ACID 1 MG TAB PO SCH (08:43)
[2017-07-07] MEDS: MULTIVITAMINS 1 EACH TAB PO SCH (08:43)
[2017-07-07] MEDS: NICOTINE 14 MG/24 HR PATCH TD SCH (08:44)
[2017-07-07] MEDS: NALTREXONE HCL 50 MG TAB PO SCH (08:44)
[2017-07-07] MEDS: NICOTINE POLACRILEX 2 MG GUM B PRN ×5 (08:53→18:48)
[2017-07-07] MEDS: SUMAtriptan 25 MG TAB PO PRN (09:08)
[2017-07-07] MEDS: NORETHINDRONE E ESTRADIOL IRON PO SCH ×2 (10:34→20:54)
--- NOTE | 2017-07-07 13:07 | SOAPPROG ---
SOAP Progress Note Assessment/Plan: Assessment: Per Dr. Torres's notes: Assessment/Plan: Assessment: Bipolar Disorder, I, manic severe with psychotic features - improving Alcohol Use Disorder severe Alcohol Withdrawal - resolved History of migraine headaches, LLE compartment syndrome Elevated liver function tests, probably from alcohol Nicotine use disorder - on nicotine patch Takes OCP daily Patient on M-1 hold for mixed manic and psychotic symptoms, was combative and in restraints in ER and received multiple doses of IM lorazepam and IM antipsychotics. Patient has mild alcohol withdrawal on unit after admit that resolved after 2 doses of Librium. Patient slept well but has some residual symptoms (briefly irritable and tearful , loud and tangential at times) but appears much improved. Plan: M-1 Hold expires 07/05/17 @ 13:23. Patient declines voluntary treatment. Will file short term certification in order to monitor patients mood stability and symptoms over weekend and recheck lithium level 07/08/17. Plan discharge 07/08/17 if having continued improvement. Continue [place] 450mg BID, not at steady state Continue Seroquel 100mg QHS Continue Ativan 1mg Q4 PRN anxiety/insomnia; Seroquel 100mg Q4 PRN agitation/ psychosis Reviewed lab results with patient. Discussed having PCP recheck after discharge. Monitor behavior, impulse control, thought organization, judgment on unit Start Naltrexone 25mg today, 50mg QAM starting tomorrow, for alcohol use disorder Patient agreeable to referral to a PCP and psychiatrist Patient unsure if she willing to attend outpatient [facility] IOP or IOP after discharge Plan: 07/06/17 14:36 1. Patient reports FLORES today, but denies that it's a migraine. "It's not that bad ," she says. But she took Imitrex this AM and Tylenol in PM. 2. Patient denies any SE's from Naltrexone. 3. [place] level on 07/05 was 0.7. 4. Patient will need referral to psych MD and therapist prior to d/c. 5. MD told patient he agreed with Dr. Torres's recommendation for substance disorder treatment after d/c, either residential, IOP or CAC therapy. 07/07/17 13:04 1. Taking Imitrex preventively, b/c admits her FLORES's are "not migraines...they' re not that bad." 2. MD explained naltrexone helps reduce cravings for alcohol. Patient read it is an opioid antagonist and was worried "you thought I had an opioid addiction. " 3. [place] level on Saturday. 4. Needs f/u appts prior to d/c. Subjective: Met with patient, reviewed chart and d/w staff. Patient told RN this AM, she felt "thickening" in her head which was "not a migraine" but patient wanted to take Imitrex to prevent migraine. Patient is eager to be discharged, b/c she feels she is wasting her time in hospital. She denies any SI/HI, no evidence of psychosis. Patient was confused about the benefits of naltrexone. She was worried her treatment team thought she had opioid addiction. MD explained that naltrexone helps to reduce alcohol cravings. Objective: Vital Signs Temp Pulse Resp BP Pulse Ox 36.4 C 69 15 108/67 94 07/07/17 06:43 07/07/17 06:43 07/07/17 06:43 07/07/17 06:43 07/07/17 06:43 Laboratory Results 07/05/17 06:00 MSE: Affect: Pleasant Mood: "OK" TP: Linear TC: Denies any SI/HI, no AH/VH Insight/Judgment: Poor a/e/b refusal to seek tx for alcohol dependence - Time Spent With Patient Time Spent With Patient: 15" - Pending Discharge Pending Discharge Within 24 Hours: Yes Pending Discharge Date: 07/08/17 (Possible d/c on Saturday once f/u plan is finalized) Pending Discharge Time: 11:00 ICD10 Worksheet Patient Problems: Problems Problem Status Onset Acute psychosis Acute
[2017-07-07] MEDS: LORazepam 1 MG TAB PO PRN ×2 (14:31→22:25)
[2017-07-07] MEDS: ACETAMINOPHEN 325 MG TAB PO PRN (18:48)
[2017-07-07] MEDS ORDERED: NORETHINDRONE E ESTRADIOL IRON PO SCH (21:00)
[2017-07-07] MEDS: QUEtiapine FUMARATE 100 MG TAB PO SCH (22:25)
[2017-07-08 06:31] VITALS: BP 108/65
[2017-07-08] MEDS: NALTREXONE HCL 50 MG TAB PO SCH (07:53)
[2017-07-08] MEDS: LITHIUM CARBONATE ER 450 MG TAB PO SCH (07:53)
[2017-07-08] MEDS: MULTIVITAMINS 1 EACH TAB PO SCH (07:53)
[2017-07-08] MEDS: NICOTINE 14 MG/24 HR PATCH TD SCH (07:53)
[2017-07-08] MEDS: SUMAtriptan 25 MG TAB PO PRN (07:56)
[2017-07-08] MEDS: FOLIC ACID 1 MG TAB PO SCH (08:12)
[2017-07-08] MEDS: NICOTINE POLACRILEX 2 MG GUM B PRN ×2 (08:38→09:38)
[2017-07-08] MEDS: LORazepam 1 MG TAB PO PRN (09:37)
--- NOTE | 2017-07-08 13:29 | BDS ---
[f rep st] BEHAVIORAL HEALTH DISCHARGE SUMMARY IDENTIFICATION: This is a 22-year-old, single white female, who lives with a roommate and a Serbian Chavez mix named Dutch. She is not currently employed. She has completed 3-1/2 years at the [employer], but is not currently in school. Her father Cristino Carrington, phone number [phone], lives in [place], and is her primary financial support. REASON FOR ADMISSION: Please see initial psychiatric evaluation from July 03, 2017. The patient had 3 emergency room visits in a 48-hour period, during which she had multiple complaints including anxiety, insomnia, symptoms of bipolar disorder. During the 3rd visit, she was agitated, having visual hallucinations, was combative and in restraints. She apparently called the police to her home due to having visual hallucinations and paranoia. In the emergency room, she had multiple doses of PO and IM antipsychotics and lorazepam , due to severe agitation. The patient was admitted on an M1 hold for grave disability. HOSPITAL COURSE: The patient was placed on assault awareness and safety precautions. The patient appeared to be in alcohol withdrawal upon admission and got 2 doses of Librium 25 mg for alcohol withdrawal and was on the CIWA protocol for 36 hours. The patient had not been receiving outpatient mental health treatment prior to admission. She had been getting medications for ADHD , including Vyvanse and Adderall from Dr. Aguilar, at the [facility], up until the fall. She had recently had emergency room visit trying to get back on her psychiatric medications that included lithium, Adderall, and Vyvanse. The patient, upon admission to the inpatient unit, was much more calm than the report from the emergency department. She did appear to have alcohol withdrawal symptoms. She had limited insight into the need to be taking mood stabilizer medications, but was agreeable to restart lithium, that she had taken in the past. She was also given Seroquel at bedtime, to help with sleep and for mood stabilization. The patient was counseled about the risks of lithium causing hypothyroidism, renal disease, as well as interaction with nonsteroidal anti-inflammatory drugs, and diuretic blood pressure medicines, as well as the risks of defects and miscarriage. The patient was continued on her oral contraceptive pill. She was given p.r.n. Imitrex for her migraine headaches. She was given a nicotine patch for nicotine use disorder. The patient tolerated lithium and Seroquel. Follow-up lithium level on 450 mg p.o. b.i.d. was 0.6. The patient was sleeping consistently with a combination of lithium and Seroquel. She was counseled about the risks of Seroquel causing diabetes, hyperlipidemia, and tardive dyskinesia. The patient had elevated liver function tests, likely due to alcoholism. The patient reported drinking 3 -6 drinks nightly or several nights a week. Of note, the patient had an emergency room visit over a year ago when she had a blood alcohol level over 300. The patient did not have alcohol in her blood during the index emergency room visit that led to the current hospitalization. The patient was counseled about her elevated liver function tests likely being secondary to alcohol, but counseled that she would need to see a primary care doctor in a month to have them rechecked to look for alternative medical causes for elevated liver functions such as viral hepatitis or other hepatocellular disease. The patient, on the unit, was largely calm, cooperative, pleasant, eating well, sleeping well, able to attend groups. She initially was somewhat dysphoric, labile, and irritable. She also was a little bit illogical regarding discharge planning. She did not report motivation to go into residential substance abuse treatment or even outpatient substance abuse treatment. She was willing to be referred back to receive outpatient psychiatric treatment including an intensive outpatient program and seeing a psychiatrist. Although the patient did not want outpatient substance use counseling, she was agreeable to start naltrexone for alcohol cravings. She received 25 mg and then 50 mg of this medication. She was given a handout on naltrexone, listing the side effects including hepatitis and blockade of opiate pain medications. The patient initially had an anion gap likely due to alcoholism. This improved on a followup blood test. The patient's father was notified of the patient's admission and the patient's discharge planning. Prior to discharge, the patient had a marked improvement. She was calm, pleasant, and cooperative, agreeable to followup treatment for her mental health but not outpatient substance abuse treatment. CONDITION ON DISCHARGE: She is an alert white female in no acute distress. She is pleasant and cooperative, ambulatory without weakness or tremors. Her speech is regular rate and rate and rhythm. Her thoughts are organized. She denies any thoughts to hurt herself or others. She denies paranoia or hallucinations. She has limited insight but appropriate judgment regarding need to get mental health treatment. She has limited motivation for sobriety. LABS: She had a white blood cell count 9.4, hemoglobin 14.6, platelet count 243. On July 05, she had a sodium 143, potassium 4.0, creatinine 0.8, glucose 73, calcium 9.4, total bilirubin 0.6, AST 120, ALT 175, albumin 3.9, alkaline phosphatase 46, triglycerides 65, LDL 82, HDL of 154. TSH 2.0, free T4 was 0.9. Serum beta HCG was negative. Urine drug screen on July 02 was positive for benzodiazepines, but she had gotten Valium or Ativan in the emergency room. She initially had a lithium level of 0.4. This increased to 0.6 prior to discharge. CONSULTS: The patient was seen by Dr. Javier, the hospitalist, on July 03, 2017. PROCEDURES: None. ADVANCED DIRECTIVES: The patient declined to have an advanced directive. METABOLIC SCREENING: Patient was counseled about Seroquel causing increased risk of diabetes and hyperlipidemia and was counseled to eat a low-sugar, low- fat diet. Her lipid panel was normal and her glucose was normal. NICOTINE USE DISORDER SCREENING: The patient was counseled about the risks of smoking and encouraged to use nicotine replacement products and used a nicotine patch while in the hospital. ALCOHOL USE DISORDER SCREEN: The patient has a severe alcohol use disorder. She declined referrals to residential substance abuse treatment. She agreed to start naltrexone for alcohol cravings. DISCHARGE DIAGNOSES: 1. Bipolar disorder type 1, most recent episode manic, severe, with psychotic features. 2. Alcohol use disorder, severe. 3. Alcohol withdrawal. 4. History of migraine headaches. 5. History of left lower extremity compartment syndrome surgery. 6. Elevated liver function tests, possibly related to alcohol. 7. Nicotine use disorder. 8. History of attention deficit hyperactivity disorder DISCHARGE MEDICATIONS: [place] extended-release 450 mg by mouth twice a day, naltrexone 50 mg by mouth daily, Seroquel 100 mg p.o. q.h.s. The patient is also to continue her oral contraceptive pill 1 tablet daily that she was taking prior to admission. She is also prescribed Imitrex 25 mg b.i.d. p.r.n. for migraine headache, maximum 10 tablets in a month. The prescriptions were written for a 30-day supply bubble pack. DISPOSITION: The patient has a positive attitude toward discharge and will be given a taxi voucher to return home. OTHER INSTRUCTIONS: The patient was counseled to not take other medications that she had mentioned in the emergency room as taking in the recent past, including zolpidem, amphetamine, Adderall, hydroxyzine, lamotrigine, Vyvanse, propranolol. The patient was counseled to stop drinking alcohol. The patient was instructed to have a primary care doctor recheck her liver function tests in 1-month. The patient was given a copy of her blood test results to take to her psychiatrist appointment and to have her psychiatrist recheck her glucose and lipid panels in 1 month while taking Seroquel. REFERRALS: The patient was referred to [facility] for primary care. She was also referred to Dr. Aponte, psychiatrist, for outpatient mental health treatment. She was also [facility] to [facility] program on the 2nd floor, [address] [place] [address], here in [place]. LEGAL STATUS: The patient was admitted on an M1 hold and then placed on short- term certification. This will be terminated upon discharge. /[id number]/MODL [id number]
== END 2017-07-08 12:40 | disposition home or self-care (01) | DRG 885 ==
LOC: EDUNIT# → BBEH 07-03 08:47
DX: F31.2 Bipolar disorder, current episode manic severe with psychotic features (principal); F10.239 Alcohol dependence with withdrawal, unspecified; R94.5 Abnormal results of liver function studies; F17.200 Nicotine dependence, unspecified, uncomplicated; G43.909 Migraine, unspecified, not intractable, without status migrainosus; R00.0 Tachycardia, unspecified; R44.1 Visual hallucinations; F90.9 Attention-deficit hyperactivity disorder, unspecified type; Y90.0 Blood alcohol level of less than 20 mg/100 ml; Z81.8 Family history of other mental and behavioral disorders; Z91.14 Patient's other noncompliance with medication regimen; Z59.7 Insufficient social insurance and welfare support
CPT/HCPCS: 80305; 96374; G0480; J1200; J3486

== ENCOUNTER 2018-01-15 05:33 | Emergency (ER) | payer BC ==
[2018-01-15 05:39] VITALS: BP 130/100
[2018-01-15] MEDS ORDERED: ACETAMINOPHEN 500 MG TAB PO ONE (06:00)
--- NOTE | 2018-01-15 06:00 | EDPHY ---
H & P Stated Complaint: Increasing swelling in tonsils, trouble swallowing,tonsilecty in 2wks Time Seen by Provider: 01/15/18 05:49 HPI/ROS: HPI The patient presents with tonsillar pain and swelling which has been present intermittently for the last several weeks though has become worse over the last 2 days. The patient tells me that she removed about 15 tonsil stones a few days ago and after this she is had difficulty sleeping because she feels that her throat is closing on her. She has not had a fever, neck pain, sore throat. She said she has made an appointment with an Ear Nose and Throat doctor for 2 weeks from now. She has had tonsillitis a few times before. She does not have a history of strep throat.. REVIEW OF SYSTEMS 10 systems were reviewed and negative with the exception of the elements mentioned in the history of present illness. PMHx: Attention deficit hyperactivity disorder, bipolar disorder Soc Hx: Housed with roommates PHYSICAL General Appearance: Alert, no distress Eyes: Pupils equal and round no pallor or injection ENT, Mouth: Mucous membranes moist, posterior pharynx is erythematous without edema, there are no exudates, tonsils do not appear enlarged Respiratory: There are no retractions, lungs are clear to auscultation Cardiovascular: Regular rate and rhythm Gastrointestinal: Abdomen is soft and non-tender, no masses, bowel sounds normal Neurological: A&O, moves all extremities Skin: Warm and dry, no rashes Musculoskeletal: Neck is supple non tender Extremities: symmetrical, full range of motion Psychiatric: Patient is oriented X 3, there is no agitation Source: Patient Exam Limitations: No limitations - Personal History LMP (Females 10-55): IUD In Place Current Tetanus Diphtheria and Acellular Pertussis (TDAP): Yes - Medical/Surgical History Hx Asthma: No Hx Chronic Respiratory Disease: No Hx Diabetes: No Hx Cardiac Disease: No Hx Renal Disease: No Hx Cirrhosis: No Hx Alcoholism: No Hx HIV/AIDS: No Hx Splenectomy or Spleen Trauma: No Other PMH: LEFT LEG COMPART SYND/SURG, ADHD, BIPOLAR - Social History Smoking Status: Light smoker Constitutional: Initial Vital Signs Temperature (C) 36.7 C 01/15/18 05:38 Heart Rate 78 01/15/18 05:38 Respiratory Rate 18 01/15/18 05:38 Blood Pressure 130/100 H 01/15/18 05:38 O2 Sat (%) 98 01/15/18 05:38 O2 Delivery Mode Room Air Allergies/Adverse Reactions: No Known Allergies Allergy (Verified 01/15/18 21:18) Home Medications: Medication Instructions Recorded Norethindrone-E.estradiol-Iron [Lo 1 each PO DAILY 01/22/16 Loestrin Fe 1-10 Tablet] [place] Carbonate ER [Eskalith Cr 450 mg PO BID 30 Days tab 07/08/17 450 mg (*)] Naltrexone HCl [Revia] 50 mg PO DAILY 30 Days tab 07/08/17 Norethindrone-E.Estradiol-Iron [Lo 1 each PO HS 07/08/17 Loestrin Fe 1-10 Tablet] QUEtiapine FUMARATE [Seroquel 100 100 mg PO HS 30 Days tab 07/08/17 mg (*)] SUMAtriptan [Imitrex 25 MG (*)] 25 mg PO BID PRN #10 tab 07/08/17 Propranolol Sr 01/15/18 Medical Decision Making Differential Diagnosis: 22-year-old female with history of anxiety and attention deficit hyperactivity disorder presents with difficulty swallowing tonight, concerned that her tonsils are enlarged and prevented her from sleeping after removing tonsil stones. On exam here, her posterior pharynx is slightly erythematous though without edema or tonsillar hypertrophy. She may be feeling some discomfort after removing these tonsil stones. I do not see any signs of airway issues with her. I question if some of her symptoms are related to anxiety. I have encouraged her to use ibuprofen and Tylenol as needed for pharyngeal inflammation. I do not think she is a good candidate for steroids given her mental health issues. She will be discharged from the emergency department and already has follow-up with ENT. - Data Points Medications Given: Discontinued Medications Acetaminophen (Tylenol) 1,000 mg PO EDNOW ONE Stop: 01/15/18 06:01 Last Admin: 01/15/18 06:06 Dose: 1,000 mg Departure - Departure Disposition: Home, Routine, Self-Care Clinical Impression: Tonsillar erythema Condition: Good Instructions: Tonsillitis (ED) Additional Instructions: I recommend you take ibuprofen 400 mg and acetaminophen 650 mg together every 6 hr as needed for pain. You may benefit from sleeping with a humidifier in her room at night. Referrals: Luis Whelan MD [Medical Doctor] - As per Instructions
== END 2018-01-15 06:07 | disposition home or self-care (01) ==
DX: J35.8 Other chronic diseases of tonsils and adenoids (principal)

== ENCOUNTER 2018-01-15 21:11 | Emergency (ER) | payer BC ==
[2018-01-15] MEDS ORDERED: LORazepam 2 MG/ML INJ IVP ONE ×2 (21:17→22:14)
--- NOTE | 2018-01-15 21:25 | EDPHY ---
H & P Stated Complaint: Anxiety attack, shaking Time Seen by Provider: 01/15/18 21:11 HPI/ROS: CHIEF COMPLAINT: "I am having anxiety attack" HISTORY OF PRESENT ILLNESS: 22-year-old female history of bipolar mood disorder arrives via ambulance complaining of acute anxiety without suicidal or homicidal ideation, without hallucination. This was triggered by watching something scary on TV this evening. She has not slept in 2 nights. She ran out of her Xanax few days ago. She would like to be evaluated by mental health services concerned that she may be an acute manic period. Denies complaints of physical pain. She was seen the ER earlier today for tonsillitis concerns. States that this is stable and is unchanged. Denies change in voice. Denies fever chills. Denies nuchal rigidity. REVIEW OF SYSTEMS: 10 systems reviewed and negative with the exception of the elements mentioned in the history of present illness PAST MEDICAL & SURGICAL HISTORY: Bipolar mood disorder. Prior history of alcohol abuse. SOCIAL HISTORY: Denies acute alcohol or drug use PHYSICAL EXAM (Prior to examination, patient consented to physical exam, hands were washed and my usual and customary physical exam procedures followed) 1) GENERAL: Well-developed, well-nourished, alert and oriented. Appears anxious. She is tremulous. She is tearful.. 2) HEAD: Normocephalic, atraumatic 3) HEENT: Pupils equal, round, reactive to light bilaterally. Sclera anicteric. 4) NECK: Full range of motion, no meningeal signs. 5) LUNGS: Clear auscultation bilaterally, no wheezes, no rhonchi, no retractions. 6) HEART: Regular rate and rhythm, no murmur, no heave, no gallop. 7) ABDOMEN: No guarding, no rebound, no focal tenderness, 8) MUSCULOSKELETAL: No peripheral edema or discoloration. 9) BACK: No obvious trauma, no visual or palpable abnormality. 10) SKIN: No rash, no petechiae. 11) Psychiatric: Patient is oriented X 3, tremulous, tearful. DIFFERENTIAL DIAGNOSIS: In no particular order including but not limited to acute anxiety reaction, benzodiazepine withdrawal, suicidal ideation, homicidal ideation - Personal History LMP (Females 10-55): 8-14 Days Ago Current Tetanus Diphtheria and Acellular Pertussis (TDAP): Yes - Medical/Surgical History Hx Asthma: No Hx Chronic Respiratory Disease: No Hx Diabetes: No Hx Cardiac Disease: No Hx Renal Disease: No Hx Cirrhosis: No Hx Alcoholism: No Hx HIV/AIDS: No Hx Splenectomy or Spleen Trauma: No Other PMH: LEFT LEG COMPART SYND/SURG, ADHD, BIPOLAR, anxiety - Social History Smoking Status: Light smoker Constitutional: Initial Vital Signs Temperature (C) 37.3 C 01/15/18 21:15 Heart Rate 126 H 01/15/18 21:15 Respiratory Rate 18 01/15/18 21:15 Blood Pressure 154/100 H 01/15/18 21:15 O2 Sat (%) 96 01/15/18 21:15 O2 Delivery Mode Room Air Allergies/Adverse Reactions: No Known Allergies Allergy (Verified 01/15/18 21:18) Home Medications: Medication Instructions Recorded Norethindrone-E.estradiol-Iron [Lo 1 each PO DAILY 01/22/16 Loestrin Fe 1-10 Tablet] [place] Carbonate ER [Eskalith Cr 450 mg PO BID 30 Days tab 07/08/17 450 mg (*)] Naltrexone HCl [Revia] 50 mg PO DAILY 30 Days tab 07/08/17 Norethindrone-E.Estradiol-Iron [Lo 1 each PO HS 07/08/17 Loestrin Fe 1-10 Tablet] QUEtiapine FUMARATE [Seroquel 100 100 mg PO HS 30 Days tab 07/08/17 mg (*)] SUMAtriptan [Imitrex 25 MG (*)] 25 mg PO BID PRN #10 tab 07/08/17 Propranolol Sr 01/15/18 Medical Decision Making ED Course/Re-evaluation: 9:24 p.m.: Patient is in the ER voluntarily. I reviewed her old medical records. Will administer IV benzodiazepine. Do not think she meets criteria for an M1 hold or mental incapacity hold at this time. Care of patient under supervision of secondary supervising physician Dr Crane 10:14 p.m.: Re-evaluation after 1 mg of Ativan. She remains tremulous. Discussed possibility of acute alcohol withdrawal. She initially requested mental health evaluation however at this time she states that she believes that she received 1 more dose of Ativan she would like to go home. She denies suicidal homicidal ideation. She has no evidence of delirium tremens. She denies hallucination. 11:17 p.m.: Re-evaluation, patient feeling improvement, she would like to be discharged home. She denies suicidal or homicidal ideation. States that she feels comfortable being discharged home. I Do not think she meets criteria for M1 hold or mental incapacity hold at this time. - Data Points Laboratory Results: 01/15/18 01/15/18 01/15/18 23:08 23:08 23:08 WBC Pending RBC Pending Hgb Pending Hct Pending MCV Pending MCH Pending MCHC Pending RDW Pending Plt Count Pending MPV Pending Neut % (Auto) Pending Lymph % (Auto) Pending Morton % (Auto) Pending Eos % (Auto) Pending Baso % (Auto) Pending Nucleat RBC Rel Count Pending Absolute Neuts (auto) Pending Absolute Lymphs (auto) Pending Absolute Monos (auto) Pending Absolute Eos (auto) Pending Absolute Basos (auto) Pending Absolute Nucleated RBC Pending Immature Gran % Pending Immature Gran # Pending Sodium Pending Potassium Pending Chloride Pending Carbon Dioxide Pending Anion Gap Pending BUN Pending Creatinine Pending Estimated GFR Pending Glucose Pending Calcium Pending Beta HCG, Qual Pending Salicylates Pending Urine Opiates Screen Acetaminophen Pending Urine Barbiturates Ur Phencyclidine Scrn Ur Amphetamine Screen U Benzodiazepines Scrn Douds Pending Urine Cocaine Screen U Marijuana (THC) Screen Ethyl Alcohol Pending 01/15/18 23:03 WBC RBC Hgb Hct MCV MCH MCHC RDW Plt Count MPV Neut % (Auto) Lymph % (Auto) Morton % (Auto) Eos % (Auto) Baso % (Auto) Nucleat RBC Rel Count Absolute Neuts (auto) Absolute Lymphs (auto) Absolute Monos (auto) Absolute Eos (auto) Absolute Basos (auto) Absolute Nucleated RBC Immature Gran % Immature Gran # Sodium Potassium Chloride Carbon Dioxide Anion Gap BUN Creatinine Estimated GFR Glucose Calcium Beta HCG, Qual Salicylates Urine Opiates Screen Pending Acetaminophen Urine Barbiturates Pending Ur Phencyclidine Scrn Pending Ur Amphetamine Screen Pending U Benzodiazepines Scrn Pending Douds Urine Cocaine Screen Pending U Marijuana (THC) Screen Pending Ethyl Alcohol Medications Given: Discontinued Medications Lorazepam (Ativan Injection) 1 mg IVP EDNOW ONE Stop: 01/15/18 21:18 Last Admin: 01/15/18 21:30 Dose: 1 mg Lorazepam (Ativan Injection) 1 mg IVP EDNOW ONE Stop: 01/15/18 22:15 Last Admin: 01/15/18 22:16 Dose: 1 mg Departure - Departure Disposition: Home, Routine, Self-Care Clinical Impression: Anxiety Condition: Good Instructions: Anxiety (ED) Additional Instructions: I have offered mental health evaluation which you have declined. Please follow- up with mental health provider tomorrow (). If you develop thoughts of hurting herself or others or develop any other symptoms seek immediate medical attention. Referrals: [facility] [Clinic] - 1 day without fail
[2018-01-15] MEDS ORDERED: LORazepam 2 MG/ML INJ ONE (22:14)
[2018-01-15 23:28] VITALS: BP 125/68
[2018-01-15 23:47] LABS: PLATELET COUNT 144 10^3/uL (150-400)
== END 2018-01-15 23:28 | disposition home or self-care (01) ==
LOC: EDUNIT#
DX: F41.9 Anxiety disorder, unspecified (principal)
CPT/HCPCS: 80305; 96374; G0480; J2060

== ENCOUNTER 2018-01-17 04:09 | Inpatient (IN) | payer BC ==
--- NOTE | 2018-01-17 04:36 | EDPHY ---
H & P Stated Complaint: "PSYCHOSIS" FROM ANXIETY ATTACK - Personal History LMP (Females 10-55): 22-28 Days Ago Current Tetanus Diphtheria and Acellular Pertussis (TDAP): Yes - Medical/Surgical History Hx Asthma: Yes Hx Chronic Respiratory Disease: No Hx Diabetes: No Hx Cardiac Disease: No Hx Renal Disease: No Hx Cirrhosis: No Hx Alcoholism: Yes Hx HIV/AIDS: No Hx Splenectomy or Spleen Trauma: No Other PMH: LEFT LEG COMPART SYND/SURG, ADHD, BIPOLAR, anxiety - Social History Smoking Status: Former smoker Time Seen by Provider: 01/17/18 04:23 HPI/ROS: Chief Complaint: Anxiety, hallucinations HPI: 22-year-old woman with a history of bipolar 1 and anxiety is present with increasing anxiety, inability to sleep for the last 3 days and now having auditory hallucinations in feels like things are crawling over her. Patient states her last alcohol was 2 sips of beer 2 nights ago. She drinks a couple times a week and not heavily. She normally takes lithium and has been compliant with her medications. She was seen here 2 days ago for anxiety. She does state that she ran out of her Xanax prescription 2 weeks ago. She says she is feeling a bit manic and has been unable to sleep. No other substance use. She states she does not have a doctors she is taking a break from [facility] and was getting her prescriptions from [facility]. She is presenting requesting mental health evaluation. ROS: 10 systems were reviewed and were negative except those elements noted in the HPI. PMH: Bipolar disorder, anxiety Social History: No smoking, occasional alcohol, no recreational drug use Family History: non-contributory Physical Exam: Gen: Awake, Alert, No Distress, tremulous, tachycardic HEENT: Nose: no rhinorrhea Eyes: PERRLA, EOMI Mouth: Moist mucosa Neck: Supple, no JVD Chest: nontender, lungs clear to auscultation Heart: S1, S2 normal, no murmur Abd: Soft, non-tender, no guarding Back: no CVA tenderness, no midline tenderness Ext: no edema, non-tender Skin: no rash Neuro: CN II-XII intact, Sensation grossly intact, Strength 5/5 in bilateral upper and lower extremities (Alonso Holly) Constitutional: Initial Vital Signs Temperature (C) 36.7 C 01/17/18 04:14 Heart Rate 139 H 01/17/18 04:14 Respiratory Rate 20 01/17/18 04:14 Blood Pressure 132/100 H 01/17/18 04:14 O2 Sat (%) 97 01/17/18 04:14 O2 Delivery Mode Room Air Allergies/Adverse Reactions: No Known Allergies Allergy (Verified 01/15/18 21:18) Home Medications: Medication Instructions Recorded [place] Carbonate ER [Eskalith Cr 450 mg PO BID 30 Days tab 07/08/17 450 mg (*)] QUEtiapine FUMARATE [Seroquel 100 100 mg PO HS 30 Days tab 07/08/17 mg (*)] Propranolol Sr 01/15/18 Hydroxyzine HCl 01/17/18 Medical Decision Making ED Course/Re-evaluation: Care was signed over to me at 7:00 a.m.. I saw the patient at 7:15 a.m.. She is sitting on the floor coloring. Speaks to me in calm manner. She is awaiting mental health evaluation Patient has been evaluated by mental health and feels she is most appropriate for inpatient admission. She has been accepted at [address] [place] [address] for admission. They asked me to give the patient Zyprexa. It is ordered (Juan Ramon Soto) Patient signed out to Dr. Soto pending mental health evaluation. (Alonso Holly) - Data Points Laboratory Results: Laboratory Results 01/17/18 04:40 01/17/18 04:40 Medications Given: Chlordiazepoxide HCl (Librium) 25 - 50 mg PO Q4HRS PRN; Protocol PRN Reason: CIWA Protocol Stop: 07/16/18 22:16 Last Admin: 01/17/18 23:39 Dose: 25 mg Chlordiazepoxide HCl (Librium) 25 mg PO TID JADEN Stop: 01/18/18 22:01 Last Admin: 01/17/18 22:48 Dose: 25 mg Nicotine Polacrilex (Nicorette) 2 mg B Q1HR PRN PRN Reason: Nicotine withdrawal Stop: 07/16/18 18:53 Last Admin: 01/17/18 19:17 Dose: 2 mg Quetiapine Fumarate (Seroquel) 50 mg PO Q4H PRN PRN Reason: Agitation, Psychosis Stop: 07/16/18 22:29 Last Admin: 01/17/18 23:40 Dose: 50 mg Discontinued Medications [place] Carbonate (Lithobid) 900 mg PO HS JADEN Stop: 07/16/18 20:59 Last Admin: 01/17/18 19:17 Dose: 900 mg Lorazepam (Ativan) 1 mg PO EDNOW ONE Stop: 01/17/18 08:16 Last Admin: 01/17/18 08:19 Dose: 1 mg Lorazepam (Ativan) 1 mg PO EDNOW ONE Stop: 01/17/18 17:16 Last Admin: 01/17/18 17:20 Dose: 1 mg Lorazepam (Ativan) 1 mg PO Q4HRS PRN PRN Reason: Anxiety, Able to Take PO Stop: 07/16/18 18:53 Last Admin: 01/17/18 19:17 Dose: 1 mg Lorazepam (Ativan) 2 mg PO ONCE ONE Stop: 01/17/18 05:01 Last Admin: 01/17/18 05:02 Dose: 2 mg Olanzapine (Zyprexa Zydis) 10 mg PO EDNOW ONE Stop: 01/17/18 14:48 Last Admin: 01/17/18 15:36 Dose: 10 mg Olanzapine (Zyprexa Zydis) 10 mg PO Q4H PRN PRN Reason: Agitation, Psychosis Stop: 07/16/18 18:53 Last Admin: 01/17/18 19:17 Dose: 10 mg Thiamine HCl (Vitamin B-1) 100 mg PO ONCE ONE Stop: 01/17/18 22:18 Last Admin: 01/17/18 22:48 Dose: 100 mg Departure - Departure Disposition: [facility] IP Clinical Impression: Psychosis Qualifiers: Psychosis type: unspecified psychosis type Qualified Code(s): F29 - Unspecified psychosis not due to a substance or known physiological condition Condition: Fair
[2018-01-17] MEDS ORDERED: LORazepam 1 MG TAB ONE (04:56)
[2018-01-17] MEDS ORDERED: LORazepam 1 MG TAB PO ONE ×3 (05:00→17:15)
[2018-01-17 05:05] LABS: PLATELET COUNT 152 10^3/uL (150-400)
--- NOTE | 2018-01-17 14:35 | ASMTTLCEVL ---
TLC Evaluation - Basic Information Evaluation Start Date and 01/17/2018 01:30 PM Time Hospital Status Answers: M1 Hold 72-hr M1 Hold Start Date 01/17/2018 01:30 PM and Time Patient statement Notes: "Can we get the nurse in her she's giving , can we move her this way?" Narrative Notes: Pt is a 22 single white female, unemployed,with history of bipolar mood disorder, living with roommate and portuguese deluca. Pt presents to ED voluntarily via private vehicle with increased anxiet and hallucinations that feels like things are crawling on her. The pt has continued to decompensate while in the emergency room and has now foldedup a blacket like swaddling stating the bunnies are giving , pt's anxiety is continue to escalate due to this delusion. Pt has now be placed on an M1 Hold by ED joseph Soto. PT's labs show that the Pt' lithium levesl are in the theraputic range .6; pt is cooperative with web operations manager, hands shaking, and is clearly very upset and concerned about the being or creature giving . She see's hears and responsds to this stimuli and keeps requesting the nurse or I (web operations manager) to help her with it.Pt reported she has been med compliant. Pt started taking the BDI and BSS but stopped suddenly and was unable to finish. Pt reported she stopped seing her therapist 3 weeks ago because they were not covered under insurance. PT has refills for her medss. She stated that lithium and seroquel are very important and she takes the regularly and vivance, xanax, and aderal are less important. Per ED Report " [facility] Patient Name: STEPHIE LAI I Rpt#: [id number] Unit Number: [id number] ER Physician: Alonso Holly MD Patient Type: REG ER Adm Date/Source: 01/17/18 EMR Discharge Date: Primary Carrier: BC OUT OF STATE PPO EMERGENCY DEPARTMENT PROVIDER REPORT H & P Stated Complaint: "PSYCHOSIS" FROM ANXIETY ATTACK - Personal History LMP (Females 10-55): 22-28 Days Ago Current Tetanus Diphtheria and Acellular Pertussis (TDAP): Yes - Medical/Surgical History Hx Asthma: Yes Hx Chronic Respiratory Disease: No Hx Diabetes: No Hx Cardiac Disease: No Hx Renal Disease: No Hx Cirrhosis: No Hx Alcoholism: Yes Hx HIV/AIDS: No Hx Splenectomy or Spleen Trauma: No Other PMH: LEFT LEG COMPART SYND/SURG, ADHD, BIPOLAR, anxiety - Social History Smoking Status: Former smoker Time Seen by Provider: 01/17/18 04:23 HPI/ROS: Chief Complaint: Anxiety, hallucinations Per ED Report - "HPI: 22-year-old woman with a history of bipolar 1 and anxiety is present with increasing anxiety, inability to sleep for the last 3 days and now having auditory hallucinations in feels like things are crawling over her. Patient states her last alcohol was 2 sips of beer 2 nights ago. She drinks a couple times a week and not heavily. She normally takes lithium and has been compliant with her medications. She was seen here 2 days ago for anxiety. She does state that she ran out of her Xanax prescription 2 weeks ago. She says she is feeling a bit manic and has been unable to sleep. No other substance use. She states she does not have a doctors she is taking a break from [facility] and was getting her prescriptions from [facility]. She is presenting requesting mental health evaluation. ROS: 10 systems were reviewed and were negative except those elements noted in the HPI. PMH: Bipolar disorder, anxiety Social History: No smoking, occasional alcohol, no recreational drug use Family History: non-contributory Physical Exam: Gen: Awake, Alert, No Distress, tremulous, tachycardic No Known Allergies Allergy (Verified 01/15/18 21:18) Home Medications: Medication Instructions Recorded Tipton Carbonate ER [Eskalith Cr 450 mg PO BID 30 Days tab 07/08/17 450 mg (*)] QUEtiapine FUMARATE [Seroquel 100 mg PO HS 30 Days tab 07/08/17 mg (*)] Propranolol Sr 01/15/18 Hydroxyzine HCl 01/17/18 Medical Decision Making ED Course/Re-evaluation: Care was signed over to me at 7:00 a.m.. I saw the patient at 7:15 a.m.. She is sitting on the floor coloring. Speaks to me in calm manner. She is awaiting mental health evaluation (Juan Ramon Soto) Diagnosis History Notes: DISCHARGE DIAGNOSES: 1. Bipolar disorder type 1, most recent episode manic, severe, with psychotic features. 2. Alcohol use disorder, severe. 3. Alcohol withdrawal. 4. History of migraine headaches. 5. History of left lower extremity compartment syndrome surgery. 6. Elevated liver function tests, possibly related to alcohol. 7. Nicotine use disorder. 8. History of attention deficit hyperactivity disorder Prior suicide attempts Notes: At the age of 17 father indicated pt made a suicide attempt by an overdose. father believes this was her only inpt psychiatric admission. Prior hospitalizations Notes: Most recently hospitalized at [facility] in July of 2017 (07/03/17 Discharge Date: 07/08/17 - see discharge summary under treatment. Pt was hospitalized at the age of 17 at [facility] in [place] following an overdose. she remained in treatment at that time for about 14 days. Treatment Responses Notes: Adm Date/Source: 07/03/17 Discharge Date: 07/08/17 Patient Name: STEPHIE LAI I Attending/ER Physician: Amor Torres MD Primary Carrier: OUT OF STATE [facility] DISCHARGE SUMMARY IDENTIFICATION: This is a 22-year-old, single white female, who lives with a roommate and a Portuguese Chavez mix named Dutch. She is not currently employed. She has completed 3-1/2 years at the [employer], but is not currently in school. Her father Cristino Lai, phone number [phone], lives in [place], and is her primary financial support. REASON FOR ADMISSION: Please see initial psychiatric evaluation from July 03, 2017. The patient had 3 emergency room visits in a 48-hour period, during which she had multiple complaints including anxiety, insomnia, symptoms of bipolar disorder. During the 3rd visit, she was agitated, having visual hallucinations, was combative and in restraints. She apparently called the police to her home due to having visual hallucinations and paranoia. In the emergency room, she had multiple doses of PO and IM antipsychotics and lorazepam, due to severe agitation. The patient was admitted on an M1 hold for grave disability. HOSPITAL COURSE: The patient was placed on assault awareness and safety precautions. The patient appeared to be in alcohol withdrawal upon admission and got 2 doses of Librium 25 mg for alcohol withdrawal and was on the CIWA protocol for 36 hours. The patient had not been receiving outpatient mental health treatment prior to admission. She had been getting medications for ADHD, including Vyvanse and Adderall from Dr. Aguilar, at the [facility], up until the fall. She had recently had emergency room visit trying to get back on her psychiatric medications that included lithium, Adderall, and Vyvanse. The patient, upon admission to the inpatient unit, was much more calm than the report from the emergency department. She did appear to have alcohol withdrawal symptoms. She had limited insight into the need to be taking mood stabilizer medications, but was agreeable to restart lithium, that she had taken in the past. She was also given Seroquel at bedtime, to help with sleep and for mood stabilization. The patient was counseled about the risks of lithium causing hypothyroidism, renal disease, as well as interaction with nonsteroidal anti-inflammatory drugs, and diuretic blood pressure medicines, as well as the risks of defects and miscarriage. The patient was continued on her oral contraceptive pill. She was given p.r.n. Imitrex for her migraine headaches. She was given a nicotine patch for nicotine use disorder. The patient tolerated lithium and Seroquel. Follow-up lithium level on 450 mg p.o. b.i.d. was 0.6. The patient was sleeping consistently with a combination of lithium and Seroquel. She was counseled about the risks of Seroquel causing diabetes, hyperlipidemia, and tardive dyskinesia. The patient had elevated liver function tests, likely due to alcoholism. The patient reported drinking 3-6 drinks nightly or several nights a week. Of note, the patient had an emergency room visit over a year ago when she had a blood alcohol level over 300. The patient did not have alcohol in her blood during the index emergency room visit that led to the current hospitalization. The patient was counseled about her elevated liver function tests likely being secondary to alcohol, but counseled that she would need to see a primary care doctor in a month to have them rechecked to look for alternative medical causes for elevated liver functions such as viral hepatitis or other hepatocellular disease. The patient, on the unit, was largely calm, cooperative, pleasant, eating well, sleeping well, able to attend groups. She initially was somewhat dysphoric, labile, and irritable. She also was a little bit illogical regarding discharge planning. She did not report motivation to go into residential substance abuse treatment or even outpatient substance abuse treatment. She was willing to be referred back to receive outpatient psychiatric treatment including an intensive outpatient program and seeing a psychiatrist. Although the patient did not want outpatient substance use counseling, she was agreeable to start naltrexone for alcohol cravings. She received 25 mg and then 50 mg of this medication. She was given a handout on naltrexone, listing the side effects including hepatitis and blockade of opiate pain medications. The patient initially had an anion gap likely due to alcoholism. This improved on a followup blood test. The patient's father was notified of the patient's admission and the patient's discharge planning. Prior to discharge, the patient had a marked improvement. She was calm, pleasant, and cooperative, agreeable to followup treatment for her mental health but not outpatient substance abuse treatment. CONDITION ON DISCHARGE: She is an alert white female in no acute distress. She is pleasant and cooperative, ambulatory without weakness or tremors. Her speech is regular rate and rate and rhythm. Her thoughts are organized. She denies any thoughts to hurt herself or others. She denies paranoia or hallucinations. She has limited insight but appropriate judgment regarding need to get mental health treatment. She has limited motivation for sobriety. LABS: She had a white blood cell count 9.4, hemoglobin 14.6, platelet count 243. On July 05, she had a sodium 143, potassium 4.0, creatinine 0.8, glucose 73, calcium 9.4, total bilirubin 0.6, AST 120, ALT 175, albumin 3.9, alkaline phosphatase 46, triglycerides 65, LDL 82, HDL of 154. TSH 2.0, free T4 was 0.9. Serum beta HCG was negative. Urine drug screen on July 02 was positive for benzodiazepines, but she had gotten Valium or Ativan in the emergency room. She initially had a lithium level of 0.4. This increased to 0.6 prior to discharge. METABOLIC SCREENING: Patient was counseled about Seroquel causing increased risk of diabetes and hyperlipidemia and was counseled to eat a low-sugar, low-fat diet. Her lipid panel was normal and her glucose was normal. NICOTINE USE DISORDER SCREENING: The patient was counseled about the risks of smoking and encouraged to use nicotine replacement products and used a nicotine patch while in the hospital. ALCOHOL USE DISORDER SCREEN: The patient has a severe alcohol use disorder. She declined referrals to residential substance abuse treatment. She agreed to start naltrexone for alcohol cravings. DISCHARGE DIAGNOSES: 1. Bipolar disorder type 1, most recent episode manic, severe, with psychotic features. 2. Alcohol use disorder, severe. 3. Alcohol withdrawal. 4. History of migraine headaches. 5. History of left lower extremity compartment syndrome surgery. 6. Elevated liver function tests, possibly related to alcohol. 7. Nicotine use disorder. 8. History of attention deficit hyperactivity disorder DISCHARGE MEDICATIONS: Tipton extended-release 450 mg by mouth twice a day, naltrexone 50 mg by mouth daily, Seroquel 100 mg p.o. q.h.s. The patient is also to continue her oral contraceptive pill 1 tablet daily that she was taking prior to admission. She is also prescribed Imitrex 25 mg b.i.d. p.r.n. for migraine headache, maximum 10 tablets in a month. The prescriptions were written for a 30-day supply bubble pack. DISPOSITION: The patient has a positive attitude toward discharge and will be given a taxi voucher to return home. OTHER INSTRUCTIONS: The patient was counseled to not take other medications that she had mentioned in the emergency room as taking in the recent past, including zolpidem, amphetamine, Adderall, hydroxyzine, lamotrigine, Vyvanse, propranolol. The patient was counseled to stop drinking alcohol. The patient was instructed to have a primary care doctor recheck her liver function tests in 1-month. The patient was given a copy of her blood test results to take to her psychiatrist appointment and to have her psychiatrist recheck her glucose and lipid panels in 1 month while taking Seroquel. REFERRALS: The patient was referred to [facility] for primary care. She was also referred to Dr. Aponte, psychiatrist, for outpatient mental health treatment. She was also referred to the [facility] Intensive Outpatient program on the 2nd floor, [address] [place] [address], here in [place]. LEGAL STATUS: The patient was admitted on an M1 hold and then placed on short-term certification. This will be terminated upon discharge. History of violence Notes: None reported Therapist: None Psychiatrist: None Medications (name, dosage, route, freq uency) Notes: From in-pt stay in July 2017 - DISCHARGE MEDICATIONS: Tipton extended-release 450 mg by mouth twice a day, naltrexone 50 mg by mouth daily, Seroquel 100 mg p.o. q.h.s. The patient is also to continue her oral contraceptive pill 1 tablet daily that she was taking prior to admission. She is also prescribed Imitrex 25 mg b.i.d. p.r.n. for migraine headache, maximum 10 tablets in a month. The prescriptions were written for a 30-day supply bubble pack. Prior to [facility] admission pt had stated when she was seen in the [facility] ed she has been off her medications for 2 months when she lost her provider. prescribed list of medications include: lamictal 300 mg po daily; vyvanse 40 mg po daily; hydroxyzine hcl 25 mg PO 8hr prn; propranolol hcl 20 mg po daily, lithobid 300 mg po daily; eskalith cr 450 mg po hs; adderrall 10 mg po daily. Allergies/Reaction Notes: None Reported Sleep Notes: Pt reports not being able to sleep the last few days - Sleep patterns per her father the pt has a history of going a few nights without sleep and then sleeping excessively. Appetite Notes: pt when asked about her appetite said it was good Medical/Surgical history Notes: pt has a history of left leg compartmental syndrome/surgery, adhd and bipolar disorder. Substance use history (frequency, intensity, his tory, duration) Notes: ETOH, xanax perscription possibly abuse. Family composition Notes: when pt was asked about family history of substance abuse or mental health problems pt only stated there is a ton of it. Need for family Answers: Yes participation in patient's care Family psychiatric/substance abuse history Notes: Per previous records when when pt was asked about family history of substance abuse or mental health problems pt only stated there is a ton of it. Developmental history Notes: there was no report of any developmental delays. father stated he and pts mother went through a bitter divorce which was very difficult for pt when she was about 16 years old. following her parents divorce, pt started taking medications for add and had her 1st psychiatric hospitalization following an overdose/suicide attempt. there was no reported history of tbis, loc or concussions. there was no reported history of childhood physical, emotional or sexual abuse/trauma. Abuse concerns Answers: None Marital status/children Notes: pt is single with no children. Living situation Notes: pt lives with a male friend in an apartment. Sexual history/orientation Notes: Heterosexual, active, pt reported she had unprotected sex and might be (this is unclear if this is part of her current delusion/hallucination) Peer support/family strengths Notes: Pt has a supportive family in [place] and lives with her roommate and is very supporitve. 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 Previously pt is not currently attending college. she has been struggling since her semester at due to academic challenges. pt has not attended classes since this past fall semester. Work history Notes: Pt is not currently employed. the father indicated pt has a hard time holding onto jobs. Notes: None reported Legal Notes: There was some report of a possible dui arrest a few years ago reported by the father. Muslim/Spiritual Notes: Pt was unable to reliably report on any leisure activities or interests. Leisure Notes: Walking her dog, movies, hiking, watching sci-fi Collateral Notes: Collateral data obtained from previous TLC report, Previous [facility] inpt dicharge summary Patient's strengths Answers: Artistic/Creative/Musical (Please select at least TWO strengths): Athletic Good Friend to Others Honest Insightful Intelligent Motivated for Treatment Responsible/Dependable Supportive/Compassionate Supportive Family Willingness TLC Evaluation - Mental Status Exam Appearance: Answers: Appropriate Clean Well Groomed Eye Contact: Answers: Good/Direct Affect: Answers: Appropriate Anxious Calm Confused Distracted Expansive Inappropriate Irritable Labile Nervous Behavior: Answers: Appropriate Cooperative Anxious Erratic Impulsive Restless Talkative Speech: Answers: Irrelevant Illogical Clear Coherent Circumstantial Excessive Flight of Ideas Hyperverbal Loose Associations Nonsensical Pressured Rambling Rapid Thought Process: Answers: Disorganized Oriented Circumstantial Distracted Flight of Ideas Loose Associations Tangential Insight: Answers: Poor Judgement: Answers: Poor Manic Signs/Symptoms Answers: Distractibility Impulsivity Mood Swings Depression Answers: Difficulty Concentrating Signs/Symptoms: Diminished Interest Diminished Pleasure Psychomotor Agitation Anxiety Signs/Symptoms Answers: Obsessive/Compulsive Thoughts/Behavior Hallucinations: Answers: Auditory Olfactory Tactile Visual Delusions: Answers: Ideas of Reference Mood-Congruent Current Stage of Change Answers: Action Contemplation Maintenance Pt reported to have Answers: No suicidal/self-injuring ideation/behavior? Pt reported to be making Answers: No suicidal/self-injuring threats? Pt reported to be making Answers: No aggression/assault threats? Pt exhibits inability to Answers: No care for self/grave disability? Ideation/behavior is Answers: No chronic? Patient has a specific Answers: No plan? Pt has access to means to Answers: No execute the plan? Ideation involves Answers: No serious/lethal intent? Ideation has Answers: Yes delusional/hallucinatory content? History of Answers: No suicidal/self-injuring ideation, behavior, or threats? History of Answers: No aggressive/assaultive ideation, behavior, or threats? History of serious Answers: No physical harm to self/others while in treatment setting? TLC Evaluation - Suicide/Homicide Risk Suicide Risk Factors: Answers: Anxiety/Panic, Severe Bipolar Disorder Impulsivity Psychotic Disorder School Difficulties Homicide/violence risk Answers: None factors: Current Suicidal Answers: No Ideation? Current Suicidal Ideation Answers: No in the Past 48 Hours? Current Suicidal Ideation Answers: No in the Past Month? Current Suicidal Answers: No Ideation, Worst Ever? Suicide Internal Answers: None Protective Factors: Suicide External Answers: Positive Therapeutic Protective Factors: Relationships Social Support Ranking of patient's Answers: Low suicidal risk: Ranking of patient's Answers: Low homicidal risk: TLC Evaluation - Wrap-up BSS Total Score: 0 AXIS I Diagnosis (include DSM-V and ICD-10 codes), must also be entered in [employer], which is the source of truth. Notes: Bipolar I Disorder, current or most recent episode depressed, with psychotic features 296.54 (F31.5) Evaluation End Date and 01/17/2018 02:33 PM Time (HH:SELVIN): Date Signed: 01/17/2018 02:34 PM Electronically Signed By:Refugio Stanton
--- NOTE | 2018-01-17 14:38 | ASMTTCLDSP ---
TLC Discharge Disposition Disposition: Answers: Admit Disposition Notes: Notes: In consultation with [facility] ED physician, Juan Ramon Soto MD and [place] on-call psychiatrist, Yazan Pham APN concurred that the pt appears to meet 27-65 criteria requiring psychiatric hospitalization as pt appears to be gravely disabled to a mental illness condition. For inpatient Yazan Pham APN admission, the following psychiatrist agreed to accept patient for admission to [facility] ([facility]): Type of Hold: Answers: M1/72-hour Hold Hold initiated by: Answers: ED Physician Date Signed: 01/17/2018 02:38 PM Electronically Signed By:Refugio Stanton
[2018-01-17] MEDS ORDERED: OLANZapine DISINTEGR 10 MG TAB PO ONE (14:47)
[2018-01-17] MEDS ORDERED: MAG HYDROX/AL HYDROX/SIMETH 30 ML UDCUP PO PRN (18:54)
[2018-01-17] MEDS ORDERED: MAGNESIUM HYDROXIDE 30 ML UDCUP PO PRN (18:54)
[2018-01-17] MEDS ORDERED: OLANZapine DISINTEGR 10 MG TAB PO PRN ×2 (18:54→22:05)
[2018-01-17] MEDS ORDERED: ACETAMINOPHEN 325 MG TAB PO PRN (18:54)
[2018-01-17] MEDS ORDERED: LORazepam 0.5 MG TAB PO PRN (18:54)
[2018-01-17] MEDS: NICOTINE POLACRILEX 2 MG GUM B PRN (19:17)
[2018-01-17] MEDS ORDERED: LITHIUM CARBONATE ER 300 MG TAB PO SCH (21:00)
[2018-01-17] MEDS ORDERED: IBUPROFEN 200 MG TAB PO PRN (22:17)
[2018-01-17] MEDS ORDERED: THIAMINE HCL 100 MG TAB PO ONE (22:17)
[2018-01-17] MEDS ORDERED: PROMETHAZINE HCL 25 MG TAB PO PRN (22:17)
[2018-01-17] MEDS ORDERED: PROMETHAZINE HCL 25 MG SUPPR PR PRN (22:17)
[2018-01-17] MEDS: chlordiazePOXIDE 25 MG CAP PO SCH (22:48)
[2018-01-17] MEDS: chlordiazePOXIDE 25 MG CAP PO PRN ×2 (22:49→23:39)
[2018-01-17] MEDS: QUEtiapine FUMARATE 50 MG TAB PO PRN (23:40)
[2018-01-18] MEDS: chlordiazePOXIDE 25 MG CAP PO PRN ×3 (02:54→11:15)
[2018-01-18] MEDS: QUEtiapine FUMARATE 50 MG TAB PO PRN ×2 (03:29→07:28)
[2018-01-18] MEDS ORDERED: LORazepam 2 MG/ML INJ ONE (04:53)
[2018-01-18] MEDS ORDERED: HALOPERIDOL LACT 5 MG/ML INJ ONE (04:54)
[2018-01-18] MEDS ORDERED: HALOPERIDOL LACT 5 MG/ML INJ IM ONE (05:15)
[2018-01-18] MEDS ORDERED: LORazepam 2 MG/ML INJ IM ONE (05:15)
[2018-01-18] MEDS: chlordiazePOXIDE 25 MG CAP PO SCH ×3 (08:45→22:18)
--- NOTE | 2018-01-18 08:48 | PDMN ---
Medical Necessity Medical necessity: Pt meets inpt criteria per MD order and [facility] [id number], Bipolar Disorders, Adult: Inpatient Care. 22 y/o w/hx bipolar I disorder admitted on M1 Hold due to being gravely disabled, bipolar I disorder, current or most recent episode depressed, w/psychotic features requiring inpt psychiatric hospitalization.
--- NOTE | 2018-01-18 09:32 | ASMTBHMTP ---
Master Treatment Plan Master Treatment Plan Answers: Mood Instability with for: Psychosis Date: 01/17/2018 Diagnosis on Admission: Bi-Polar I Disorder, current or most recent episode depressed, with psychotic features 296.54 (F31.5) Expected length of stay: 3-5 days Reason for admission: Notes: Per Report: Pt is a 22 single white female, unemployed,with history of bipolar mood disorder, living with roommate and faroese deluca. Pt presents to ED voluntarily via private vehicle with increased anxiet and hallucinations that feels like things are crawling on her. The pt has continued to decompensate while in the emergency room and has now foldedup a blacket like swaddling stating the bunnies are giving , pt's anxiety is continue to escalate due to this delusion. Pt has now be placed on an M1 Hold by ED phsyicain Dr. Soto. PT's labs show that the Pt' lithium levesl are in the theraputic range .6; pt is cooperative with field horticultural specialty grower, hands shaking, and is clearly very upset and concerned about the being or creature giving . She see's hears and responsds to this stimuli and keeps requesting the nurse or I (field horticultural specialty grower) to help her with it.Pt reported she has been med compliant. Pt started taking the BDI and BSS but stopped suddenly and was unable to finish. Pt reported she stopped seing her therapist 3 weeks ago because they were not covered under insurance. PT has refills for her medss. She stated that lithium and seroquel are very important and she takes the regularly and vivance, xanax, and aderal are less important. Patient's stated presenting problems: Notes: Unable assist due to client currently being in seclusion.* Patient's goals for treatment: Notes: Unable assist due to client currently being in seclusion.* Patient's strengths: Notes: Unable assist due to client currently being in seclusion.* Identify supports outside of hospital: Notes: Unable assist due to client currently being in seclusion.* Discharge criteria: Notes: Patient will demonstrate more stable mood by discharge.* Initial disposition plan/considerations: Notes: Unable assist due to client currently being in seclusion.* Master Treatment Plan Required Signatures Psychiatrist signature: Answers: Psychiatrist: RN on-shift signature: Answers: RN: Patient signature: Answers: Patient: Date Signed: 01/18/2018 09:31 AM Electronically Signed By:Canelo Ruiz
[2018-01-18] MEDS: FOLIC ACID 1 MG TAB PO SCH (10:35)
[2018-01-18] MEDS: MULTIVITAMINS 1 EACH TAB PO SCH (10:36)
[2018-01-18] MEDS: THIAMINE HCL 100 MG TAB PO SCH (10:42)
--- NOTE | 2018-01-18 11:23 | ASMTCMCOM ---
CM Note CM Note Notes: CC was able to confirm with FOC (Jean-Paul) [phone]; contacted the unit inquiring about his daughter's wellbeing, etc. CC was able to confirm client is on the unit; however, expressed that client has not been able to sign DONTE yet for parents, thus CC could not provide any information to FOC; however, CC did note that FOC could express his concerns to CC (and listen to them), etc. FOC noted, that client was a patient at [facility] last year. Additionally, he noted concerns regarding client's Alcohol and Drug use; he suggested that "she doctor shops and describes her as a 'drug seeker,' for anything that will try to alter her mood including Xanax, Adderall, etc." FOC suggested that client has had past and possible current issues with Alcohol and would like some resources upon discharge surrounding these issues. Moreover, he noted that "last time she was suppose to go to an IOP program but 'did not follow through', and would like [her] to be more accountable." [facility] would like client to sign DONTE for him so hospital staff could provide information, etc. FOC was understandable, worried about client, and pleasant during phone interaction. Date Signed: 01/18/2018 11:23 AM Electronically Signed By:Canelo Ruiz
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
[2018-01-18] MEDS ORDERED: QUEtiapine FUMARATE 100 MG TAB PO SCH (21:00)
[2018-01-18] MEDS: QUEtiapine FUMARATE 100 MG TAB PO SCH (22:18)
[2018-01-18] MEDS: LITHIUM CARBONATE ER 450 MG TAB PO SCH (22:18)
[2018-01-19] MEDS: MULTIVITAMINS 1 EACH TAB PO SCH (08:36)
[2018-01-19] MEDS: LITHIUM CARBONATE ER 450 MG TAB PO SCH ×2 (08:36→21:07)
[2018-01-19] MEDS: chlordiazePOXIDE 25 MG CAP PO SCH ×3 (08:36→21:07)
[2018-01-19] MEDS: FOLIC ACID 1 MG TAB PO SCH (08:37)
[2018-01-19] MEDS ORDERED: chlordiazePOXIDE 25 MG CAP PO SCH (09:00)
[2018-01-19] MEDS: QUEtiapine FUMARATE 100 MG TAB PO SCH ×2 (09:17→21:07)
[2018-01-19] MEDS: THIAMINE HCL 100 MG TAB PO SCH (10:31)
[2018-01-19] MEDS ORDERED: PNEUMOCOCCAL 0.5ML VACCINE VIAL (PNEUMOVAX 23) IM ONE (14:59)
[2018-01-19] MEDS ORDERED: PNEUMOCOCCAL 0.5ML VACCINE VIAL (PNEUMOVAX 23) ONE (15:06)
--- NOTE | 2018-01-19 17:24 | SOAPPROG ---
SOAP Progress Note Assessment/Plan: Assessment: 22 yo with h/o bipolar do w/ psychotic features, presented with acute psychosis including auditory/visual/tactile hallucinations in presence of daily "dabbing, " using a concentrated form of THC called "crackle." Patient had also run out of prescription xanax b/c she had been using more than the prescribed amount. She has prior h/o alcohol and benzo withdrawal accompanied by hallucinations. PLAN: 01/19/18 17:11 1. Patient denies all AH/VH/TH today. She denies all sxs of ETOH/benzo w/d. Her CIWA score last night and this AM were zero. 2. Will d/c CIWA and continue Librium taper. Patient claims Librium doesn't "do anything," however, Dr. Torres who treated patient during her previous admission, noted patient improved rapidly after 2 doses of Librium. 3. Patient has significant substance use disorders including: alcohol, benzos, and THC. Her FOC reports she frequently goes to ED and MD's offices to "get drugs." She has been able to obtain Rx for xanax, Adderall and Vyvanse from outpatient prescribers. Based on patient's presentation during her previous admission and this time, MD would strongly discourage any providers from supplying this patient with potentially addictive meds especially ones that can exacerbate psychosis. This is the patient's second admission for acute psychosis during which she had to be given IM meds repeatedly to calm her agitation and aggression. Psychostimulants are very ill advised for this patient. 4. In addition, it is likely patient's continued use of concentrated THC that is contributing to her chronic mood instability and her severe psychotic sxs. If she continues to use this potent drug that interferes with brain function, then any psychotropic meds will have little to no positive benefit and may likely create unwanted adverse effects in combination with the other drugs, including alcohol and THC that she uses. Current and future providers would be well advised to consider carefully the risks versus benefits of giving patient psychotropic meds. 5. Patient signed DONTE's for CC to talk to her family in [place]. 6. Patient will need f/u appts with OP providers after discharge. 7. Patient says she feels like she is at baseline already. Subjective: Patient presents dramatically different than yesterday. She is appropriately dressed, well-groomed, pleasant, engaging, smiling. She is linear, coherent and logical. She denies any auditory/visual/tactile hallucinations. She denies any alcohol or benzo w/d sxs. When MD expresses surprise at how much her mental status has improved, patient says, "You see, I snap out of this really fast." Her presentation is similar to her last admission. On that occasion, patient was extremely agitated, combative and disorganized in ED. She received multiple IM doses of Ativan, Olanzapine Geodon. However, when she got to psych unit, Dr. Torres noted she was calm, pleasant and cooperative. Patient says she remembers yesterday and felt like she was "looking at myself from the outside." After not sleeping on Saturday night, she slept 11.5 hrs last night. Objective: Vital Signs Temp Pulse Resp BP Pulse Ox 36.7 C 87 16 111/67 97 01/19/18 15:43 01/19/18 15:43 01/19/18 15:43 01/19/18 15:43 01/19/18 15:43 MSE: Affect: Pleasant, smiling Mood: "Good" TP: Linear TC: Denies any SI/HI, no delusions Perception: Denies all AH/VH/TH Insight/Judgment: Improved - Time Spent With Patient Time Spent With Patient: 15" - Pending Discharge Pending Discharge Within 24 Hours: No Pending Discharge Within 48 Hours: No ICD10 Worksheet Patient Problems: Problems Problem Status Onset Psychosis Acute Acute psychosis Acute
[2018-01-19] MEDS: NICOTINE POLACRILEX 2 MG GUM B PRN (18:10)
[2018-01-20] MEDS: MULTIVITAMINS 1 EACH TAB PO SCH (08:17)
[2018-01-20] MEDS: FOLIC ACID 1 MG TAB PO SCH (08:17)
[2018-01-20] MEDS: LITHIUM CARBONATE ER 450 MG TAB PO SCH ×2 (08:17→18:02)
[2018-01-20] MEDS: THIAMINE HCL 100 MG TAB PO SCH (08:17)
[2018-01-20] MEDS ORDERED: chlordiazePOXIDE 25 MG CAP PO SCH (09:00)
--- NOTE | 2018-01-20 11:59 | ASMTCMCOM ---
CM Note CM Note Notes: CC met with client briefly for check in. She also participated in treatment team meeting today. Client presents as alert, focused on conversation, affect appropriate towards situation, etc. CC was able to send out-patient referral to [facility] for therapy only, due to having commercial insurance and not enrolled in school, etc. Waiting to hear back from [facility] on appts. Client is willing to stay in hospital over the day and night.* Also, going to bridge providers with [facility], which is in client's discharge checklist.* Date Signed: 01/20/2018 11:58 AM Electronically Signed By:Canelo Ruiz
--- NOTE | 2018-01-20 12:43 | SOAPPROG ---
SOAP Progress Note Assessment/Plan: Assessment: Bipolar I Disorder, Severe complicated by Cannabis Use Disorder, Alcohol Use Disorder and Benzodiazepine Use Disorder Suspected. Improvement noted. (see subjective/objective note). Patient could benefit from continued inpatient hospitalization for crisis stabilization, safety, and medication evaluation. Patient could benefit from IOP treatment, substance abuse treatment, therapy, and medication management after discharge and case supervisor to establish referrals and appointments prior to discharge. Patient likely discharge tomorrow. Plan: 1. Psychotropic medications: After reviewing options, risks, and benefits patient agrees to continue current medications and agrees to change Seroquel 100 mg po BID to Seroquel 200 mg po QHS. No medication changes at this time as more time is needed to determine ongoing tolerability and efficacy. Plan is to continue to observe patient for response and side effects from medications, and ongoing monitoring and evaluation. 2. Review with patient informed consent and recommendations for psychotropic medication treatment listed below 3. Labs: lithium level 01/21/18 @0600 4. Therapy: continue milieu and group therapy 5. Further investigation including gathering information from patients relatives and review of past case records to inform treatment plan. 6. Safety/Wellness plan and follow-up outpatient appointments to be established prior to discharge. Next steps are for patient to meet with rn medicare to plan a safe discharge plan and establish outpatient services for ongoing treatment. 7. Confer with inpatient treatment team regarding treatment plan. 8. Psychosocial stressors addressed through case management. 9. Legal status: voluntary 10. Consider discharge on Saturday if patient is in stable condition, safe, and has a safe discharge plan. 11. Substance abuse interventions: cannabis and alcohol PSYCHOTROPIC MEDICATION TREATMENT INFORMED CONSENT and RECOMMENDATIONS: Review nature of condition, diagnosis, and prognosis. Review nature and purpose of psychotropic medication treatment. Review type of psychotropic medications being ordered. Review risk and benefits of psychotropic medication treatment. Review probable length of time patient will need to take medications. Review risk and benefits of not undergoing psychotropic medication treatment. Review alternative treatments to psychotropic medications. Review psychotropic medications contraindications, drug-drug interactions, side effects, and importance of reporting any side effects to a psychiatric provider or nurse during inpatient hospitalization, and upon discharge to patients psychiatric outpatient provider, primary care provider, or other health day care supervisor. Review importance of asking a nurse, psychiatric provider, or primary care provider any questions or problems concerning the psychotropic medications. Verify patient understands the information that has been provided, and understands, accepts, and agrees to psychotropic medications. Review patients safety plan and importance of patient to report to staff while hospitalized if patient is ever a danger to self/others, or unable to care for self, and upon discharge, the importance for patient to contact [facility] or [facility], or go to the nearest emergency room, if patient is ever a danger to self/others, or unable to care for self. Recommend that upon discharge patient establish medication management treatment with a psychiatric provider, establishes routine therapy appointments, and follow-up with primary care provider. Verify patient understands and agrees to these recommendations. 01/20/18 12:48 Subjective: Following up with patient for evaluation of domingo, psychosis, and safety. Patient reports, "Doing much better, got some rest and medications seem to be working well." Patient expresses the following psychiatric symptoms none. Patient reports taking medications as prescribed, and describes response to medications as good. Patient does not report undesirable side effects from the medications, and agrees to continue current medications. Patient requests Seroquel to be changed to Seroquel 200 mg po QHS. Patient agrees to lithium level tomorrow morning. Patient describes getting 8 hours of sleep. Patient agrees to voluntary hospitalization. Objective: Vital Signs Temp Pulse Resp BP Pulse Ox 36.9 C 105 H 16 111/65 97 01/20/18 06:00 01/20/18 06:00 01/20/18 06:00 01/20/18 06:00 01/20/18 06:00 NURSING REPORT: Consulted with nursing for update on patients progress in treatment. Nurses report patient is engaged in treatment, is attending groups, slept 8 hours, expresses the following psychiatric symptoms: mild anxiety, exhibits the following psychiatric symptoms: flat affect; is eating all meals, is agreeable to medications and taking as prescribed with no report of side effects, with no s/s of EPS/akathisia, and denies SI/HI, denies A/V hallucinations, and denies delusions. TREATMENT PLANNING MEETING: Patient met with treatment team to review discharge plan. Substance use treatment was recommended. MSE: The patient presents casually dressed and with good hygiene, and looks stated age. Patient is sitting, posture is upright, and position is relaxed. Patient appears awake, alert, and responds appropriately and reasonably during interview. Patient is engaged, relates well to interviewer, and emotional facial expression is appropriate to situation and changes appropriately with topic. Patient is cooperative, makes comfortable eye contact, and movements are voluntary, deliberate, coordinated, and smooth and even with no inappropriate movements. Patient makes laryngeal sounds effortlessly and shares conversation appropriately; pace of conversation is appropriate, and stream of talking is fluent; articulation is clear and understandable; word choice is effortless and appropriate for education level; completes sentences, occasionally pausing to think; rate and volume are appropriate for interview and setting. Patient reports mood as euthymic. Patients affect is stable with full variable range, congruent with mood, and appropriate to speech and circumstances. Patient has linear and logical thinking, with no loose associations, tangential thought, thought blocking, concrete thinking, or any other signs of formal thought disorder. Patient denies suicidal and homicidal ideation, and denies hallucinations and delusions. Patient appears to be a reliable historian with sound judgement and good insight into current condition. Patient has no apparent dysfunction in recent or remote memory noted , and no evidence of gross cognitive dysfunction noted at any point during the interview. SUBSTANCE ABUSE BRIEF INTERVENTION: Brief intervention regarding the risks of cannabis and alcohol abuse is provided to patient with goal to reduce the risk of harm that could result from the continued use of cannabis and alcohol, with the general aim to investigate the problem, raise awareness of problem, develop a solution with the patient, recommend a specific change or activity, and motivate the patient toward change. Assess substance abuse behavior and give supportive advice about harm reduction, recommend a reduction in hazardous/at- risk consumption patterns, and facilitate referrals for additional specialized treatment with summer child caregiver. Intermediate goal is for the patient to quit use and attend outpatient substance abuse treatment. Intervention focus on intermediate goals to allow for more immediate success in the treatment process to keep the patient motivated. Review following with patient: Cannabis use risks: Short-term use: impaired short-term memory, impaired motor coordination, altered judgement, in high doses paranoia and psychosis. Long-term use addiction, diminished life satisfaction and achievement, symptoms of chronic bronchitis, and increased risk of chronic psychosis disorders if predisposition to such disorders. In withdrawal anger, aggression irritability, anxiety and nervousness, decreased appetite or weight loss, restlessness, and sleep difficulties with strange dreams. Alcohol/Binge Drinking risks: short-term: injuries, violence, alcohol poisoning, risky sexual behaviors. Long-term: high blood pressure, stroke, liver disease, digestive problems, cancer, learning and memory problems, depression and anxiety, social problems, and alcohol dependence. OUTPATIENT SUBSTANCE ABUSE TREATMENT: Patient referred to outpatient provider and treatment for continued treatment related to substance abuse. - Time Spent With Patient Time Spent With Patient: 25 minutes, met with patient individually and with patient and treatment team. - Pending Discharge Pending Discharge Within 24 Hours: Yes Pending Discharge Within 48 Hours: No Pending Discharge Date: 01/21/18 Pending Discharge Time: 11:00 ICD10 Worksheet Patient Problems: Problems Problem Status Onset Bipolar I disorder, current or most recent episode manic, severe with mood- congruent psychotic features Chronic
[2018-01-20] MEDS ORDERED: QUEtiapine FUMARATE 100 MG TAB PO SCH (21:00)
[2018-01-20] MEDS: QUEtiapine FUMARATE 50 MG TAB PO PRN (21:34)
[2018-01-21 06:47] VITALS: BP 101/55
[2018-01-21] MEDS: LITHIUM CARBONATE ER 450 MG TAB PO SCH (08:27)
[2018-01-21] MEDS: FOLIC ACID 1 MG TAB PO SCH (08:28)
[2018-01-21] MEDS: MULTIVITAMINS 1 EACH TAB PO SCH (08:28)
--- NOTE | 2018-01-21 09:01 | ASMTBHDC ---
Notes Note: Notes: CC was able to confirm client's follow up after care: Follow up with: [facility] [address], [address] [place] [address] Intake Appt: SaturdayFebruary 03 (02/03/18) at 10:45am. [facility] (Med[facility]) [address] [place] [phone] Fax: [phone] WALK- IN TIME & DATES HOURS OF OPERATION [facility] OpensClosed for Lunch[facility]inica Closes [id number] Date Signed: 01/21/2018 09:01 AM Electronically Signed By:Canelo Ruiz
--- NOTE | 2018-01-21 14:55 | BDS ---
REASON FOR ADMISSION: From the ED note dated 01/17/2018, patient with a history of bipolar 1 and anxiety. She presented to the emergency room with increasing anxiety, inability to sleep for the last 3 days, and reported having auditory hallucinations and also tactile hallucinations, reported feeling as though things were crawling all over her. Patient reported feeling a bit manic and has been unable to sleep. Patient was admitted involuntarily and on an M1 hold due to being gravely disabled due to a mental illness. The patient was admitted for safety, crisis stabilization, and medication management. ADMITTING DIAGNOSES: 1. Bipolar I disorder, current or most recent episode manic, severe, with mood congruent psychotic features. 2. Cannabis use disorder, severe. 3. 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 4. Benzodiazepine withdrawal ADMISSION PHYSICAL EXAM: Patient was seen on 01/18/2018, for an internal medicine consultation for medical clearance for inpatient psychiatric hospitalization and treatment. The patient was medically cleared for inpatient psychiatric hospitalization and treatment. For further details, please refer to consultation note dated 01/18/2018. ADMISSION LABS: CBC from 01/17/2018, within normal limits. BMP from 01/17/2018 , within normal limits, except carbon dioxide was low at 14. Glucose is elevated at 122. Hemoglobin A1c from 01/17/2018, was within normal limits at 5.0. Liver function from 01/17/2018, within normal limits, except AST was elevated at 101. ALT was elevated at 116. Total protein was elevated at 8.4. Lipid panel from 01/17/2018, within normal limits, except cholesterol was elevated at 241. Non-HDL cholesterol was low at 80. HDL cholesterol was elevated at 161. LDL/HDL ratio was low at 0.42. TSH from 01/17/2018, was elevated at 5.470. Beta hCG qualitative test from 01/17/2018, was negative. Toxicology screen from 01/17/2018, was non-negative for benzodiazepines, negative for all other substances tested. Negative for ethyl alcohol. Verdon level on 01/17/2018, was 0.6 at time of admission. Toxicology screen from 01/19/2018, was negative for all substances tested. Verdon level at time of discharge on 01/21/2018, was 0.8. This level is in a therapeutic range at current lithium dose at time of discharge. MAJOR PROCEDURES OR TESTS: None. HOSPITAL COURSE: From the initial psychiatric assessment and history dated , at time of admission, patient was confused, disorganized, had difficulty attending and focusing to conversation. The patient had difficulty responding to questions, was highly distractible. The patient continued to show signs of responding to external stimuli. Patient did not make direct eye contact with staff, seemed to be more interested in external stimuli than staff , who attempted to directly engage the patient. The patient was only oriented to person, did not know where she was and what the date and time was. The patient did not understand the reason for her admission. The patient was also delusional. Patient was extremely agitated and required seclusion. While in seclusion, patient attempted to hoist herself up on the ledge in the seclusion room. She tried kicking the torres. She kicked a hole in the wall and had to be moved into a different seclusion room. The patient was given IM medications to help address her agitation and psychosis, with very little effect. The patient had received multiple doses of antipsychotic medications. Patient received 2 doses of 10 mg of Zyprexa p.o. in the ED, as well as a total of 5 mg of Ativan, which seemed to have very little effect on the patient. When she got onto the psychiatric unit, she was placed on a CIWA protocol given her prior history of acute agitation and hallucinations during a period of alcohol withdrawal. The patient scored a 43 initially on the CIWA. She scored 21 points for auditory, visual, and tactile hallucinations. The patient also had an elevated blood pressure and was slightly tachycardic. The patient was given multiple doses of Librium. She was also given Seroquel 50 mg p.r.n. Patient had previously received 900 mg of lithium in the ED. From progress note dated 01/19/2018, patient's acute psychosis, including auditory, visual, tactile hallucinations, was likely due to daily dabbing using a concentrated form of THC called "crackle." The patient had also been abusing Xanax prescription, using more than her prescribed amount. The patient has a past history of alcohol and benzo withdrawal accompanied by hallucinations. When seen by the MD on 01/19/2018, the patient denied all auditory, visual, and tactile hallucinations. The patient denied all symptoms of alcohol and benzo withdrawal. Her CIWA score on 01/18/2018, during the medical care administrator, was 0. The patient's affect was pleasant, smiling. Patient reported mood as "good." Patient's thought process was linear. Patient denied any SI or HI. No delusions reported. Patient's insight and judgment had improved. When seen on 01/20/2018, the patient reported "doing much better, got some rest , and medications seem to be working well." The patient expressed no psychiatric symptoms and exhibited no psychiatric symptoms. Patient has improved considerably, with no signs of psychiatric symptoms and no psychiatric symptoms expressed at time of discharge. Patient reports she has improved since admission, states to be in stable condition, feels safe to discharge, and she contracts for safety. Treatment modalities utilized during hospitalization were milieu and group therapy. The patient's outpatient medications were continued, including lithium carbonate ER 450 mg p.o. b.i.d. and Seroquel 100 mg p.o. b.i.d. Patient requested Seroquel dose to be changed to 200 mg p.o. q.h.s. The patient reported this was her outpatient dose, and the time that she would take the Seroquel would be at bedtime. Patient tolerated these medications with no report of side effects and with good response. Patient's response to treatment was good. There were no adverse or unexpected results of treatment. The patient was safe throughout her stay, active in treatment, engaged in groups, and was appropriate with staff and other patients. Patient met with the treatment team prior to discharge to assess readiness to discharge and review discharge plan. The treatment team consensus is the patient is in stable condition, has a safe discharge plan, and is ready to discharge today. CONDITION ON DISCHARGE: Patient is in stable condition and is no longer a danger to self or others, and is not gravely disabled due to mental illness. Patient is no longer in need of inpatient level of care, and can be safely and effectively treated within the community. The patients level of risk at time of discharge is low. MSE: The patient is casually dressed and with good hygiene , and looks stated age. Patient is sitting, posture is upright, and position is relaxed. Patient appears awake, alert, and responds appropriately and reasonably during interview. Patient is engaged, relates well to interviewer, and emotional facial expression is appropriate to situation and changes appropriately with topic. Patient is cooperative, makes comfortable eye contact , and movements are voluntary, deliberate, coordinated, and smooth and even with no inappropriate movements. Patient makes laryngeal sounds effortlessly and shares conversation appropriately; pace of conversation is appropriate, and stream of talking is fluent; articulation is clear and understandable; word choice is effortless and appropriate for education level; completes sentences, occasionally pausing to think; rate and volume are appropriate for interview and setting. Patient reports mood as euthymic. Patients affect is stable with full variable range, congruent with mood, and appropriate to speech and circumstances. Patient has linear and logical thinking, with no loose associations, tangential thought, thought blocking, concrete thinking, or any other signs of formal thought disorder. Patient denies suicidal and homicidal ideation, and denies hallucinations and delusions. Patient appears to be a reliable historian with sound judgement and good insight into current condition. Patient has no apparent dysfunction in recent or remote memory noted , and no evidence of gross cognitive dysfunction noted at any point during the interview. DISCHARGE DIAGNOSES: 1. Bipolar I disorder, current or most recent episode manic, severe, with mood congruent psychotic features. 2. Cannabis use disorder, severe. 3. 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 CURRENT MEDICATIONS: After reviewing options, risks and benefits with the patient, patient agrees to continue: 1. Verdon carbonate ER 450 mg p.o. b.i.d. 2. Seroquel 200 mg p.o. q.h.s. 3. Patient requests a prescription for Seroquel at the time of discharge. A prescription for 30 days is provided. The prescription is reviewed with the patient at time of discharge to ensure accuracy and patient understanding. The patient reports she has prescriptions for her other medications, including lithium carbonate ER 450 mg p.o. b.i.d. The patient reports she plans to follow up with her outpatient provider for ongoing medication monitoring and evaluation. DISPOSITION: Patient left hospital independently and voluntarily. FOLLOWUP: solution coordinator reports the appropriate outpatient follow-up services have been established and outpatient appointments have been scheduled. The patient received written instructions with times and dates of outpatient follow-up appointments. The following follow-up recommendations were provided to the patient at discharge: Continue psychotropic medications as prescribed and attend appointments as scheduled. Report any side effects to a psychiatric outpatient provider, a primary care provider, or other health pharmacist critical care. Address any questions or problems concerning the psychotropic medications with a psychiatric outpatient provider, a primary care provider, or other health pharmacist critical care. Contact [facility] or [facility], or go to the nearest emergency room, if you are ever a danger to yourself/others, or unable to care for yourself. As soon as possible, establish a routine medication management treatment with a psychiatric provider, establish routine therapy appointments, and follow-up with a primary care provider. SUBSTANCE ABUSE BRIEF INTERVENTION: Brief intervention regarding the risks of cannabis abuse is provided to patient with goal to reduce the risk of harm that could result from the continued use of cannabis, with the general aim to investigate the problem, raise awareness of problem, develop a solution with the patient, recommend a specific change or activity, and motivate the patient toward change. Assess substance abuse behavior and give supportive advice about harm reduction, recommend a reduction in hazardous/at-risk consumption patterns, and facilitate referrals for additional specialized treatment with home care music therapist. Intermediate goal is for the patient to quit and attend outpatient substance abuse treatment. Intervention focus on intermediate goals to allow for more immediate success in the treatment process to keep the patient motivated. Review following with patient: Cannabis use risks: Short- term use: impaired short-term memory, impaired motor coordination, altered judgement, in high doses paranoia and psychosis. Long-term use addiction, diminished life satisfaction and achievement, symptoms of chronic bronchitis, and increased risk of chronic psychosis disorders if predisposition to such disorders. In withdrawal anger, aggression irritability, anxiety and nervousness, decreased appetite or weight loss, restlessness, and sleep difficulties with strange dreams. OUTPATIENT SUBSTANCE ABUSE TREATMENT: Patient referred to outpatient provider and treatment for continued treatment related to substance abuse. LEGAL COURSE: Patient was admitted on an M1 hold for involuntary psychiatric hospitalization. Patient became voluntary during her stay, and patient discharged today independently and voluntarily. ATTITUDE AT TIME OF DISCHARGE: The patients attitude was positive at time of discharge, and patient reports looking forward to discharging today. The patient reports she feels safe to discharge, is no longer a danger to herself or others, is in stable condition, and contracts for safety. Patient states she will continue medications as prescribed, and establish medication management treatment with an outpatient provider after discharge. Patient reports she understands the information that has been provided to her, and she understands, accepts, and agrees to psychotropic medications. Patient describes internal protective factors as the coping skills she has learned while hospitalized here, and she plans to continue to practice these coping skills after discharge. LABS AND STUDIES: There were no pending labs or studies at time of discharge. ADVANCE DIRECTIVES: There were no advance directives on file, and patient was full code during this hospitalization. The following psychotropic medication treatment informed consent and recommendations were provided to the patient at time of discharge. Patient reports she understands, accepts, and agrees to the information that has been provided. PSYCHOTROPIC MEDICATION TREATMENT INFORMED CONSENT and RECOMMENDATIONS: Review nature of condition, diagnosis, and prognosis. Review nature and purpose of psychotropic medication treatment. Review type of psychotropic medications being prescribed. Review risk and benefits of psychotropic medication treatment. Review probable length of time will need to take medications. Review risk and benefits of not undergoing psychotropic medication treatment. Review alternative treatments to psychotropic medications. Review psychotropic medications contraindications, side effects, and importance of reporting any side effects to a psychiatric provider, primary care provider, or other health pharmacist critical care. Review importance of her asking a psychiatric provider or primary care provider any questions or problems concerning the psychotropic medications. Review importance of reporting to a psychiatric provider, primary care provider, or other health pharmacist critical care if she plans to or becomes . Review safety plan and the importance to contact [facility] or [facility] , or go to the nearest emergency room, if ever a danger to yourself/others, or unable to care for yourself. Recommend upon discharge to establish routine medication management treatment with a psychiatric provider, establish routine therapy appointments, and follow-up with a primary care provider. Verify patient understands, accepts, and agrees to the information that has been provided. /[id number]/[id number]
== END 2018-01-21 13:00 | disposition home or self-care (01) | DRG 884 ==
LOC: BBEH 18:35
PROVIDERS: ADMIT Registered Nurse; ATTEND Registered Nurse
DX: F06.33 Mood disorder due to known physiological condition with manic features (principal); F12.988 Cannabis use, unspecified with other cannabis-induced disorder; F15.23 Other stimulant dependence with withdrawal; Z23 Encounter for immunization
CPT/HCPCS: 80305; 80307; G0008; G0009; G0480; J1200; J1630; J2060

== ENCOUNTER 2018-08-22 13:53 | Emergency (ER) | payer BC | END 2018-08-22 15:35 | disposition home or self-care (01) ==